=== PATIENT | female | born 1935 | race Caucasian/White ===

== ENCOUNTER 2017-07-20 10:55 | Emergency (ER) | payer OTHER ==
[~2017-07-20] VITALS: Ht 160 cm; Wt 79.4 kg
[~2017-07-20 10:55] MED LIST: AMLO5TAB2 PO; ASPI-587 PO; FLUT1DIS3 IH; LEVO75TA6 PO; LOSA1TAB23 PO; LOVA40TA2 PO; OSLT75CRX PO; RT-ALBUINH IH
--- OUTSIDE RECORDS SUMMARY | 2017-07-20 11:02 | XMS REPORT | Continuity of Care Document ---
Author Author [facility] Organization [facility] Address Unknown Phone Unavailable Allergies Active Description Code Type Severity Reaction Onset Reported/Identified Relationship to Patient Clinical Status Yes PCN PCN Mild N/A 04/05/2014 Yes Penicillins [id number] Drug Allergy Unknown N/A 04/05/2014 Yes No Known Drug Allergies [id number] Drug Allergy Unknown N/A 05/20/2014 Medications There is no data. Problems Date Dx Coded Attending Type Code Diagnosis Diagnosed By 04/04/2014 LEIGHTON ARAUJO MD Ot V72.84 04/05/2014 VAN WARD, LEIGHTON Ot 211.3 04/05/2014 VAN WARD, LEIGHTON Ot 244.9 04/05/2014 VAN WARD, LEIGHTON Ot 272.0 04/05/2014 VAN WARD, LEIGHTON Ot 401.9 04/05/2014 VAN WARD, LEIGHTON Ot 455.0 04/05/2014 VAN WARD, LEIGHTON Ot 455.3 04/05/2014 VAN WARD, LEIGHTON Ot 562.10 04/05/2014 VAN WARD, LEIGHTON Ot V58.66 04/05/2014 VAN WARD, LEIGHTON Ot V58.69 04/05/2014 LEIGHTON ARAUJO MD Ot V67.9 05/20/2014 Ot V01.89 05/20/2014 Ot V71.89 07/05/2014 LEIGHTON ARAUJO MD Ot V72.84 07/05/2014 LEIGHTON ARAUJO MD Ot V72.84 07/05/2014 LEIGHTON ARAUJO MD Ot V72.84 07/05/2014 LEIGHTON ARAUJO MD Ot V72.84 Procedures There is no data. Results There is no data. Encounters ACCT No. Visit Date/Time Discharge Status Pt. Type Provider Facility Loc./Unit Complaint [id number] 04/05/2014 08:17:00 04/05/2014 12:05:00 DIS Outpatient LEIGHTON ARAUJO MD [facility] [id number] 03/29/2014 05:45:00 03/29/2014 23:59:59 CLS Outpatient LEIGHTON ARAUJO MD [facility] PREOP [id number] 02/07/2013 10:25:00 02/07/2013 23:59:59 CLS Outpatient [id number] 05/20/2014 14:47:00 Document Registration [id number] 04/07/2016 09:10:54 04/07/2016 23:59:59 CLS Outpatient
[2017-07-20 11:50] LABS: BASOPHILS % (AUTO) 0 % (0-10); EOSINOPHILS # (AUTO) 0.1 10^3/uL (0.0-0.3); EOSINOPHILS % (AUTO) 1 % (0-10); HEMATOCRIT 42 % (35-52); HEMOGLOBIN 14.2 G/DL (11.5-16.0); LYMPHOCYTES # (AUTO) 1.8 X 10^3 (1.0-4.0); LYMPHOCYTES % (AUTO) 33 % (12-44); MEAN CORPUSCULAR HEMOGLOBIN 28 PG (25-34); MEAN CORPUSCULAR HGB CONC 34 G/DL (32-36); MEAN CORPUSCULAR VOLUME 84 FL (80-99); MEAN PLATELET VOLUME 10.5 FL (7.4-10.4); MONOCYTES # (AUTO) 0.3 X 10^3 (0.0-1.0); MONOCYTES % (AUTO) 6 % (0-12); NEUTROPHILS # (AUTO) 3.3 X 10^3 (1.8-7.8); NEUTROPHILS % (AUTO) 60 % (42-75); PLATELET COUNT 291 10^3/uL (130-400); RED BLOOD COUNT 5.03 10^6/uL (4.35-5.85); RED CELL DISTRIBUTION WIDTH 14.1 % (10.0-14.5); WHITE BLOOD COUNT 5.5 10^3/uL (4.3-11.0)
[2017-07-20 12:01] LABS: BILIRUBIN,TOTAL 0.5 MG/DL (0.1-1.0); CALCIUM 9.4 MG/DL (8.5-10.1); CREATININE SERUM 1.05 MG/DL (0.60-1.30); POTASSIUM 3.7 MMOL/L (3.6-5.0); TOTAL PROTEIN 6.9 GM/DL (6.4-8.2)
--- NOTE | 2017-07-20 12:06 | ED General ---
General Chief Complaint: Dizziness/Syncope Stated Complaint: DIZZY OFF BALANCE Nursing Triage Note: pt presents to ed with complaints of dizziness since Thursday. Reports she has not seen her provider for this. Pt states she feels like her equilebrium is off. Pt denies SOA, CP, BALL, weakness, vision changes, or difficulty with speech. Nursing Sepsis Screen: No Definite Risk Source of Information: Patient Exam Limitations: No Limitations History of Present Illness Date Seen by Provider: July 20, 2017 Time Seen by Provider: 11:41 Initial Comments This 82-year-old woman is a patient of Dr. Clayton who presents to the emergency room complaining of sensation of dizziness and disequilibrium since July 17. She states her dizziness was a fairly intense vertigo on July 17 which has now subsided to a more mild sensation of disequilibrium. It is worse upon standing and with head movements. She no longer has a spinning sensation associated with it. She feels like she leans to the left when walking and she has to be careful to avoid falling. She has not required assistive devices such as a walker or cane. She is notably hypertensive on assessment. She reports her blood pressure at home was 152/63. She does take antihypertensive medications and her last dose was yesterday evening. She denies any chest pain, shortness of breath, fever, cough, or urinary symptoms. She does have some aching in the hamstrings bilaterally. She reports remodeling a house and spending a great deal of time pulling aaron out of floors. Allergies and Home Medications Allergies Coded Allergies: No Known Drug Allergies (Unverified , 05/20/14) Home Medications Amlodipine Besylate 5 Mg Tablet, 5 MG PO DAILY, (Reported) Aspirin 81 Mg Tablet.dr, 81 MG PO DAILY, (Reported) Levothyroxine Sodium 75 Mcg Tablet, 50 MCG PO DAILY, (Reported) Losartan/Hydrochlorothiazide 1 Each Tablet, 1 EACH PO DAILY, (Reported) Lovastatin 40 Mg Tablet, 1 EACH PO DAILY WITH SUPPER, (Reported) Patient Home Medication List Home Medication List Reviewed: Yes Review of Systems Constitutional: dizziness EENTM: no symptoms reported Respiratory: no symptoms reported Cardiovascular: no symptoms reported Gastrointestinal: no symptoms reported Genitourinary: no symptoms reported : No Musculoskeletal: see HPI Skin: no symptoms reported Psychiatric/Neurological: See HPI Hematologic/Lymphatic: No Symptoms Reported Immunological/Allergic: no symptoms reported Past Impxqoc-Nasfor-Ahbxnk Hx Patient Social History Alcohol Use: Denies Use Recreational Drug Use: No Smoking Status: Never a Smoker Recent Foreign Travel: No Contact w/Someone Who Travel: No Recent Infectious Disease Expo: No Physical Abuse: No Sexual Abuse: No Mistreated: No Fear: No Immunizations Up To Date Date of Pneumonia Vaccine: Feb 03, 2014 Date of Influenza Vaccine: Feb 03, 2014 Seasonal Allergies Seasonal Allergies: No Past Medical History Surgeries: Yes Hysterectomy, Tonsillectomy Respiratory: Yes (C-PAP) Asthma, Sleep Apnea Cardiac: Yes High Cholesterol, Hypertension Neurological: No : No Reproductive Disorders: No Gastrointestinal: No Musculoskeletal: No Endocrine: Yes Hypothyroidsim HEENT: No Cancer: No Psychosocial: No Nursing Suicide Risk Score: 0 Integumentary: No Blood Disorders: No Physical Exam Vital Signs Vital Signs - First Documented 07/20/17 11:27 Temp 97.8 Pulse 50 Resp 18 B/P (MAP) 187/79 (115) Pulse Ox 94 Capillary Refill : Less Than 3 Seconds General Appearance: No Apparent Distress, WD/WN HEENT: PERRL/EOMI, TMs Normal, Normal ENT Inspection, Pharynx Normal Respiratory: Lungs Clear, Normal Breath Sounds, No Accessory Muscle Use, No Respiratory Distress Cardiovascular: Regular Rate, Rhythm, No Edema, No Murmur Gastrointestinal: Normal Bowel Sounds, Non Tender, Soft Extremity: Normal Inspection, No Pedal Edema, Other (tenderness of the hamstrings bilaterally) Neurologic/Psychiatric: Alert, Oriented x3, No Motor/Sensory Deficits, Normal 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 Normal gait) Skin: Normal Color, Warm/Dry Progress/Results/Core Measures Suspected Sepsis Recent Fever Within 48 Hours: No Infection Criteria Present: None New/Unexplained Altered Menta: No Sepsis Screen: No Definite Risk SIRS Temperature:97.8 Pulse: 50 Respiratory Rate: 18 Laboratory Tests 07/20/17 11:22: White Blood Count 5.5 Blood Pressure 187 /79 Mean: 115 Laboratory Tests 07/20/17 11:22: Creatinine 1.05, Platelet Count 291, Total Bilirubin 0.5 Results/Orders Lab Results Laboratory Tests Test 07/20/17 11:22 07/20/17 12:26 Range/Units White Blood Count 5.5 4.3-11.0 10^3/uL Red Blood Count 5.03 4.35-5.85 10^6/uL Hemoglobin 14.2 11.5-16.0 G/DL Hematocrit 42 35-52 % Mean Corpuscular Volume 84 80-99 FL Mean Corpuscular Hemoglobin 28 25-34 PG Mean Corpuscular Hemoglobin Concent 34 32-36 G/DL Red Cell Distribution Width 14.1 10.0-14.5 % Platelet Count 291 130-400 10^3/uL Mean Platelet Volume 10.5 H 7.4-10.4 FL Neutrophils (%) (Auto) 60 42-75 % Lymphocytes (%) (Auto) 33 12-44 % Monocytes (%) (Auto) 6 0-12 % Eosinophils (%) (Auto) 1 0-10 % Basophils (%) (Auto) 0 0-10 % Neutrophils # (Auto) 3.3 1.8-7.8 X 10^3 Lymphocytes # (Auto) 1.8 1.0-4.0 X 10^3 Monocytes # (Auto) 0.3 0.0-1.0 X 10^3 Eosinophils # (Auto) 0.1 0.0-0.3 10^3/uL Basophils # (Auto) 0.0 0.0-0.1 10^3/uL Sodium Level 141 135-145 MMOL/L Potassium Level 3.7 3.6-5.0 MMOL/L Chloride Level 106 98-107 MMOL/L Carbon Dioxide Level 28 21-32 MMOL/L Anion Gap 7 5-14 MMOL/L Blood Urea Nitrogen 20 H 7-18 MG/DL Creatinine 1.05 0.60-1.30 MG/DL Estimat Glomerular Filtration Rate 50 BUN/Creatinine Ratio 19 Glucose Level 114 H 70-105 MG/DL Calcium Level 9.4 8.5-10.1 MG/DL Total Bilirubin 0.5 0.1-1.0 MG/DL Aspartate Amino Transf (AST/SGOT) 17 5-34 U/L Alanine Aminotransferase (ALT/SGPT) 14 0-55 U/L Alkaline Phosphatase 55 40-136 U/L Troponin I < 0.30 <0.30 NG/ML Total Protein 6.9 6.4-8.2 GM/DL Albumin 4.0 3.2-4.5 GM/DL Thyroid Stimulating Hormone (TSH) 2.07 0.35-4.94 UIU/ML Free Thyroxine 1.10 0.70-1.48 NG/DL Urine Color YELLOW Urine Clarity CLEAR Urine pH 6 5-9 Urine Specific [place] 1.015 L 1.016-1.022 Urine Protein NEGATIVE NEGATIVE Urine Glucose (UA) NEGATIVE NEGATIVE Urine Ketones NEGATIVE NEGATIVE Urine Nitrite NEGATIVE NEGATIVE Urine Bilirubin NEGATIVE NEGATIVE Urine Urobilinogen NORMAL NORMAL MG/DL Urine Leukocyte Esterase NEGATIVE NEGATIVE Urine RBC (Auto) NEGATIVE NEGATIVE Urine RBC NONE /HPF Urine WBC NONE /HPF Urine Squamous Epithelial Cells RARE /HPF Urine Crystals NONE /LPF Urine Bacteria NEGATIVE /HPF Urine Casts NONE /LPF Urine Mucus SMALL H /LPF Urine Culture Indicated NO My Orders Orders - JOLEEN IVEY MD Cbc With Automated Diff (07/20/17 11:38) Comprehensive Metabolic Panel (07/20/17 11:38) Ua Culture If Indicated (07/20/17 11:38) Ekg Tracing (07/20/17 11:38) Monitor-Rhythm Ecg Trace Only (07/20/17 11:38) Chest 1 View, Ap/Pa Only (07/20/17 11:38) Thyroid Stimulating Hormone (07/20/17 11:56) Free T4 (Free Thyroxine) (07/20/17 11:56) Troponin I (07/20/17 11:57) Ct Head Wo (07/20/17 12:56) Us Carotid Ena Complete 10208 (07/20/17 12:56) Vital Signs/I&O 07/20/17 07/20/17 11:27 14:32 Temp 97.8 Pulse 50 55 Resp 18 18 B/P (MAP) 187/79 (115) 157/71 Pulse Ox 94 97 Capillary Refill : Less Than 3 Seconds Blood Pressure Mean: 115 Progress Note : Progress Note On initial assessment patient expressed a desire to receive a thorough workup to rule out any significant possible causes for her dizziness. After a workup was performed and no significant abnormalities were detected. Blood pressure showed no significant change upon standing. Blood pressure did trend toward a normal direction and patient was actually feeling improved by the time of discharge. She was discharged home to follow up with her primary care provider. Patient did have some mild bradycardia at times with heart rates dropping into the upper 40s. This could be a contributing factor. Her blood pressure is not ideally controlled at this time. That could also be acute renal factor. She was advised to discuss her medications with her primary care provider. Patient performed well with observed ambulation to ensure safety before discharge. ECG Initial ECG Impression Date: July 20, 2017 Initial ECG Impression Time: 12:06 Initial ECG Rate: 48 Initial ECG Rhythm: S.Joseph Comment Mild sinus bradycardia with no ST elevation or depression. No abnormal intervals or axis deviation. Diagnostic Imaging Diagonstic Imaging: CT Plain Films/CT/US/NM/MRI: head Comments CT the head reviewed by me and report reviewed. See report below: NAME: [facility] [employer] REC#: [id number] PT STATUS: DEP ER : 1935 PHYSICIAN: JOLEEN IVEY MD ADMIT DATE: 07/20/17/ER Signed Date of Exam: 07/20/17 CT HEAD WO PROCEDURE: CT head without contrast. TECHNIQUE: Multiple contiguous axial images were obtained through the brain without the use of intravenous contrast. INDICATION: Dizziness. COMPARISON: There are no prior studies available for comparison. FINDINGS: There is no mass, shift of the midline, or hemorrhage to suggest an acute intracranial abnormality. The ventricles are not abnormally dilated. There is an area slightly altered density adjacent to the lateral aspect of the right occipital horn (image 11/27). I suspect that this is due to volume averaging and not to a discrete abnormality. The bone windows show no evidence for a fracture or for a destructive lesion. The orbits and sinuses were not visualized in their entirety. Where visualized, there is no acute abnormality. IMPRESSION: 1. There is no evidence for an acute intracranial abnormality. 2. If clinical concern regarding an acute abnormality persists, then MRI would be recommended for further study. 3. These results were discussed with Dr. Ivey in the ER. Dictated by: Dictated on workstation # [id number] Dict: 07/20/17 1315 Trans: 07/20/171726 Interpreted by: ALEC VITALE MD Electronically signed by: ALEC VITALE MD 07/20/171726 Diagonstic Imaging: Xray Plain Films/CT/US/NM/MRI: chest Comments NAME: HEMA E[facility] [employer] REC#: [id number] PT STATUS: REG ER : 1935 PHYSICIAN: JOLEEN IVEY MD ADMIT DATE: 07/20/17/ER Signed Date of Exam: 07/20/17 CHEST 1 VIEW, AP/PA ONLY Indication: Dizziness. Comparison: 02/07/2013. Findings: Unchanged cardiomegaly. Normal pulmonary vasculature. Visible lungs are clear. Posterior lower lobes are poorly evaluated by portable radiography. Atherosclerotic aorta. No pleural effusion or pneumothorax. Impression: Stable cardiomegaly without acute cardiopulmonary process by portable radiography. Dictated by: Dictated on workstation # [id number] Dict: 07/20/17 1224 Trans: 07/20/17 1321 Interpreted by: ELIANE HANKINS MD Electronically signed by: ELIANE HANKINS MD 07/20/17 1321 Diagonstic Imaging: Ultrasound Plain Films/CT/US/NM/MRI: other (Bilateral carotid ultrasound) Comments NAME: [facility] REC#: [id number] PT STATUS: DEP ER : 1935 PHYSICIAN: JOLEEN IVEY MD ADMIT DATE: 07/20/17/ER Signed Date of Exam: 07/20/17 US CAROTID ENA COMPLETE [id number] PROCEDURE: US carotid duplex, bilateral. TECHNIQUE: Multiple real-time grayscale images were obtained over the carotid arteries in various projections, bilaterally. Additional duplex Doppler and color Doppler images were also obtained. DATE: July 20, 2017. INDICATION: 82-year-old female, dizziness. COMPARISON: None. FINDINGS: Peak systolic velocity in the left common carotid artery measures 77 cm/s. Peak systolic velocity in the left proximal internal carotid artery measures 39 cm/s, 34 cm/s in the mid left internal carotid artery, and 70 cm/s distally. Peak systolic velocity in the left external carotid artery measures 44 cm/s. There is patent antegrade flow in the left vertebral artery. Peak systolic velocity in the right common carotid artery measures 72 cm/s. Peak systolic velocity in the right proximal internal carotid artery measures 103 cm/s, 70 cm/s in the mid right internal carotid artery, and 80 cm/s distally. Peak systolic velocity in the right external carotid artery measures 51 cm/s. There is patent antegrade flow in the right vertebral artery. IMPRESSION: 1. Negative for hemodynamically significant right or left internal carotid artery stenosis. 2. Patent antegrade flow in the bilateral vertebral arteries. Parameters based on the consensus panel Paz-Scale and Doppler ultrasound criteria published January 2003, Radiology, Volume 229. DOPPLER (peak systolic velocity M/S Right Left CCA .71 .77 ICA Proximal 1.03 .39 ICA Mid .69 .33 ICA Distal .8 .69 RATIO 1.44 .91 ECA .5 .44 VERT .56 .44 Dictated by: Dictated on workstation # [id number] Dict: 07/20/17 1339 Trans: 07/20/17 1609 Interpreted by: LUI REED MD Electronically signed by: LUI REED MD 07/20/17 1609 Departure Impression Primary Impression: Dizziness Additional Impressions: Disequilibrium Hypertension Qualified Codes: I10 - Essential (primary) hypertension Disposition: 01 HOME, SELF-CARE Condition: Improved Departure-Patient Inst. Decision time for Depature: 14:15 Referrals: DOUG CLAYTON MD (PCP/Family) Primary Care Physician Patient Instructions: High Blood Pressure (DC), Labyrinthitis Add. Discharge Instructions: The exact cause of your dizziness is uncertain. It may be related to a viral illness, heart rate, or blood pressure. Follow-up with your primary care provider as soon as possible. Return to the emergency room if symptoms worsen. Until symptoms resolve, please stand up and walk very carefully. Use an assistive device such as a cane or walker if necessary. Stay well hydrated and avoid excessive salt intake. All discharge instructions reviewed with patient and/or family. Voiced understanding. Copy Copies To 1: DOUG CLAYTON MD, JOSHUA T MD July 20, 2017 12:06
--- NOTE | 2017-07-20 12:28 | Diagnostic Imaging Report ---
Indication: Dizziness. Comparison: 02/07/2013. Findings: Unchanged cardiomegaly. Normal pulmonary vasculature. Visible lungs are clear. Posterior lower lobes are poorly evaluated by portable radiography. Atherosclerotic aorta. No pleural effusion or pneumothorax. Impression: Stable cardiomegaly without acute cardiopulmonary process by portable radiography. Dictated by: Dictated on workstation # [id number]
[2017-07-20 12:34] LABS: BILIRUBIN,URINE NEGATIVE (NEGATIVE); CLARITY,URINE CLEAR; COLOR,URINE YELLOW; GLUCOSE, URINE (UA) NEGATIVE (NEGATIVE); KETONES,URINE NEGATIVE (NEGATIVE); LEUKOCYTE ESTERASE ,URINE NEGATIVE (NEGATIVE); NITRITE,URINE NEGATIVE (NEGATIVE); PH,URINE 6 (5-9); PROTEIN,URINE NEGATIVE (NEGATIVE); UROBILINOGEN,URINE NORMAL (NORMAL)
[2017-07-20 12:41] LABS: BACTERIA,URINE NEGATIVE /HPF; SQUAMOUS EPITHELIAL CELL,UR RARE /HPF
--- NOTE | 2017-07-20 13:28 | Diagnostic Imaging Report ---
PROCEDURE: CT head without contrast. TECHNIQUE: Multiple contiguous axial images were obtained through the brain without the use of intravenous contrast. INDICATION: Dizziness. COMPARISON: There are no prior studies available for comparison. FINDINGS: There is no mass, shift of the midline, or hemorrhage to suggest an acute intracranial abnormality. The ventricles are not abnormally dilated. There is an area slightly altered density adjacent to the lateral aspect of the right occipital horn (image 11/27). I suspect that this is due to volume averaging and not to a discrete abnormality. The bone windows show no evidence for a fracture or for a destructive lesion. The orbits and sinuses were not visualized in their entirety. Where visualized, there is no acute abnormality. IMPRESSION: 1. There is no evidence for an acute intracranial abnormality. 2. If clinical concern regarding an acute abnormality persists, then MRI would be recommended for further study. 3. These results were discussed with Dr. Ivey in the ER. Dictated by: Dictated on workstation # [id number]
--- NOTE | 2017-07-20 13:45 | Diagnostic Imaging Report ---
PROCEDURE: US carotid duplex, bilateral. TECHNIQUE: Multiple real-time grayscale images were obtained over the carotid arteries in various projections, bilaterally. Additional duplex Doppler and color Doppler images were also obtained. DATE: July 20, 2017. INDICATION: 82-year-old female, dizziness. COMPARISON: None. FINDINGS: Peak systolic velocity in the left common carotid artery measures 77 cm/s. Peak systolic velocity in the left proximal internal carotid artery measures 39 cm/s, 34 cm/s in the mid left internal carotid artery, and 70 cm/s distally. Peak systolic velocity in the left external carotid artery measures 44 cm/s. There is patent antegrade flow in the left vertebral artery. Peak systolic velocity in the right common carotid artery measures 72 cm/s. Peak systolic velocity in the right proximal internal carotid artery measures 103 cm/s, 70 cm/s in the mid right internal carotid artery, and 80 cm/s distally. Peak systolic velocity in the right external carotid artery measures 51 cm/s. There is patent antegrade flow in the right vertebral artery. IMPRESSION: 1. Negative for hemodynamically significant right or left internal carotid artery stenosis. 2. Patent antegrade flow in the bilateral vertebral arteries. Parameters based on the consensus panel Paz-Scale and Doppler ultrasound criteria published January 2003, Radiology, Volume 229. DOPPLER (peak systolic velocity M/S Right Left CCA .71 .77 ICA Proximal 1.03 .39 ICA Mid .69 .33 ICA Distal .8 .69 RATIO 1.44 .91 ECA .5 .44 VERT .56 .44 Dictated by: Dictated on workstation # [id number]
[2017-07-20 14:32] VITALS: BP 157/71
== END 2017-07-20 14:32 | disposition home or self-care (01) ==
LOC: EDUNIT# 10:55 → ER 10:59
DX: R42 Dizziness and giddiness (principal); E87.8 Other disorders of electrolyte and fluid balance, not elsewhere classified; I10 Essential (primary) hypertension; J45.909 Unspecified asthma, uncomplicated; G47.30 Sleep apnea, unspecified; E78.00 Pure hypercholesterolemia, unspecified; E03.9 Hypothyroidism, unspecified; Z79.82 Long term (current) use of aspirin; Z90.89 Acquired absence of other organs; Z90.710 Acquired absence of both cervix and uterus
CPT/HCPCS: 36415; 70450; 71045; 80053; 81000; 84439; 84443; 84484; 85025; 93005; 93041; 93880

== ENCOUNTER → 2020-09-14 | Outpatient (CLI) | payer MEDICARE, OTHER | LOC: CARD 10:30 | PROVIDERS: ATTEND Internal Medicine Cardiovascular Disease | DX: I11.9 Hypertensive heart disease without heart failure (principal); I25.10 Atherosclerotic heart disease of native coronary artery without angina pectoris | CPT/HCPCS: 93306 ==

== ENCOUNTER → 2020-09-24 | Outpatient (CLI) | payer MEDICARE, OTHER ==
[~2020-09-24] VITALS: Ht 160 cm; Wt 77.0 kg
[~2020-09-24] MED LIST changes: +CATHETER FLUSH 10 ML SYR IV PRN; +REGADENOSON 0.4 MG/5 ML SYR (LEXISCAN) IV ONE
[2020-09-24 09:03] VITALS: BP 157/92
--- NOTE | 2020-09-24 11:00 | Cardiology Stress Test Report ---
Stress Test Report Date of Procedure/Referring: Date of Procedure: Sep 24, 2020 PCP Aleyda Guerra MD Admitting Physician Farhad Clayton MD Indications: HTN Baseline Heart Rate: 68 Baseline Blood Pressure: Blood Pressure Systolic: 157 Blood Pressure Diastolic: 92 Baseline Vitals Vital Signs Date Time Temp Pulse Resp B/P (MAP) Pulse Ox O2 Delivery O2 Flow Rate FiO2 09/24/20 09:03 41 18 157/92 (113) 95 Room Air Baseline EKG: Baseline EKG: NSR Summary After explaining the procedure to the patient, she signed a consent and then brought to the stress nuclear laboratory. Patient received 0.4 mg Lexiscan for stress test, ECG, heart rate and blood pressure were monitored continuously. Resting and stress dose of radio tracer were injected, imaging was acquired and reviewed in short axis, horizontal long axis and vertical long axis views. TID: 1.16 SSS: 3 SDS: 3 EF: 68 1. Patient tolerated Lexiscan well 2. No significant ischemia or infarction on SPECT images 3. Normal left ventricular size, EF 68% ALEYDA GUERRA MD Sep 24, 2020 11:00
== END ==
LOC: CARD 08:30
PROVIDERS: ATTEND Internal Medicine Cardiovascular Disease
DX: I10 Essential (primary) hypertension (principal); I25.10 Atherosclerotic heart disease of native coronary artery without angina pectoris
CPT/HCPCS: 78452; 93017; A9502

== ENCOUNTER → 2020-10-18 | Outpatient (CLI) | payer MEDICARE, OTHER ==
[~2020-10-18] MED LIST changes: -CATHETER FLUSH 10 ML SYR IV PRN; -REGADENOSON 0.4 MG/5 ML SYR (LEXISCAN) IV ONE
== END ==
LOC: CARD 10:30
PROVIDERS: ATTEND Physician Assistant
DX: I49.9 Cardiac arrhythmia, unspecified (principal)
CPT/HCPCS: 93225; 93226

== ENCOUNTER 2020-10-31 14:00 | Day surgery (SDC) | payer MEDICARE, OTHER ==
[~2020-10-31] VITALS: Ht 157 cm; Wt 78.9 kg
[2020-10-31] VITALS (9 sets, daily range): BP systolic 128–177; BP diastolic 74–98
[2020-10-31] MEDS: NS IV 1000 ML 1,000 ML IV SCH ×2 (12:43→22:15)
[2020-10-31 12:49] LABS: HEMATOCRIT 44 % (35-52); HEMOGLOBIN 14.2 g/dL (11.5-16.0); MEAN CORPUSCULAR HEMOGLOBIN 28 pg (25-34); MEAN CORPUSCULAR HGB CONC 32 g/dL (32-36); MEAN CORPUSCULAR VOLUME 87 fL (80-99); MEAN PLATELET VOLUME 10.8 fL (9.0-12.2); PLATELET COUNT 265 10^3/uL (130-400); WHITE BLOOD COUNT 5.8 10^3/uL (4.3-11.0)
--- NOTE | 2020-10-31 12:53 | Diagnostic Imaging Report ---
INDICATION: SINUS NODE DYSFUNCTION. SHORTNESS OF AIR. EVALUATION PRIOR TO HEART CATHETERIZATION FOR PERMANENT PACEMAKER. TECHNIQUE: Single view chest 12:42 PM. CORRELATION STUDY: 07/20/2017 FINDINGS: Heart size is enlarged, stable. Calcification of the aortic arch. Vasculature overall within normal limits. Minimal atelectasis and/or scarring left lung base. Lung luna otherwise clear. IMPRESSION: 1. Stable severity cardiac enlargement without failure. Dictated by: Dictated on workstation # [id number]
[2020-10-31 13:06] LABS: INR 0.9 (0.8-1.4); PROTHROMBIN TIME PATIENT 12.9 SEC (12.2-14.7)
[2020-10-31 13:15] LABS: BILIRUBIN,TOTAL 0.6 MG/DL (0.1-1.0); CALCIUM 10.1 MG/DL (8.5-10.1); CREATININE SERUM 1.17 MG/DL (0.60-1.30); POTASSIUM 3.3 MMOL/L (3.6-5.0); TOTAL PROTEIN 7.3 GM/DL (6.4-8.2)
[~2020-10-31 14:00] MED LIST changes: +ASPI-1238 PO; +CALC-250 PO; +HEParin (CATH LAB) 1,000 ML IV ONE; +HYDR25TA4 PO; +LEVO50CA4 PO; +LIDOCAINE 1% INJ 20 ML 20 ML VIAL ONE; +LOSA100T57 PO; +MELA1TAB15 PO; +NAPR220T66 PO; +NS IV 1000 ML 2,000 ML ONE; +PRAV20TA3 PO; +TURM500C4 PO; +ZINC50TA58 PO; +ceFAZolin INJECTION 1,000 MG ONE
[2020-10-31] MEDS ORDERED: fentaNYL INJ 100 MCG/2 ML AMP ONE ×2 (14:14→15:22)
[2020-10-31] MEDS ORDERED: MIDAZOLAM 5 MG/5 ML (VERSED) VIAL ONE (14:14)
[2020-10-31] MEDS ORDERED: meTOprolol 5 MG/5 ML (LOPRESSOR) VIAL ONE (15:34)
--- NOTE | 2020-10-31 15:51 | Conscious Sedation/ASA ---
Conscious Sedation Pre-Proced Time 13:00 ASA Score 3 For ASA 3 and 4: Consider anesthesia and medical clearance. Also, for patients with a history of failed moderate sedation consider anesthesia. Airway Lungs Heart ASA score ASA 1: a normal healthy patient ASA 2: a patient with a mild systemic disease (mid diabetes, controlled hypertension, obesity x ASA 3: a patient with a severe systemic disease that limits activity (angina, COPD, prior Myocardial infarction) ASA 4: a patient with an incapacitating disease that is a constant threat to life (CHF, renal failure) ASA 5: a moribund patient not expected to survive 24 hrs. (ruptured aneurysm) ASA 6: a declared brain- patient whose organs are being harvested. For emergent operations, add the letter E after the classification Mallampati Classification Grade 3 Sedation Plan Analgesia, Amnesia, Plan communicated to team members, Discussed options with patient/fam, Discussed risks with patient/fam The patient is an appropriate candidate to undergo the planned procedure, sedation, and anesthesia. The patient immediately re-assessed prior to indication. ALEYDA LOJA MD Oct 31, 2020 15:51
--- NOTE | 2020-10-31 15:54 | Permanent Pacemaker Implant ---
Dual Chamber Pacemaker Implant PROCEDURE PHYSICIAN: Aleyda Guerra DUAL CHAMBER PACEMAKER IMPLANTATION: DATE OF PROCEDURE: 10/31/20 INDICATION: Symptomatic bradycardia PREOPERATIVE DIAGNOSIS: Sinus node dysfunction POSTOPERATIVE DIAGNOSIS: Sinus node dysfunction HISTORY: Dual-chamber permanent pacemaker was recommended. PROCEDURE PERFORMED: 1. Dual-chamber permanent pacemaker implantation. 2. Fluoroscopy. 3. Central venous access. ANESTHESIA: Local anesthesia, conscious sedation. COMPLICATIONS: None. ESTIMATED BLOOD LOSS:20 mL. SPECIMENS: None. ORAL ANTICOAGULATION: None. FLUOROSCOPY TIME: FLUOROSCOPY DOSE: CONTRAST DOSE: PROCEDURE DETAILS: The patient is a 85 female with sinus node dysfunction, severe bradycardia, symptomatic complaining of fatigue, loss of energy. She was scheduled for dual- chamber pacemaker implant. And after all of the patients questions were answered, the patient was brought to the EP Lab. The patient's left chest was prepped and draped in sterile fashion. A 2 inch horizontal incision was made 1 cm below the clavicle and dissection carried down to the pectoralis fascia. Using the modified Seldinger technique and under fluoroscopy guidance, the anterior aspect of the left axillary vein was accessed 2 times. The J wires were secured to the drapes with a mosquito clamp. A 7-[place] sheath was introduced over one of the J-wires. The RV lead was then inserted. The RV lead was directed across the tricuspid valve to the apical septal portion of the right ventricle. The position was checked in PASHTO and FERGUSON views. The screw was deployed and the lead connected to the etl programmer. Close sensing and pacing thresholds were obtained. Diaphragmatic pacing was ruled out. The lead was secured with 2-0 silk ties to the underlying muscle and fascia. Next, a 7-[place] sheath was introduced through the remaining J-wire. An atrial lead was then introduced and guided to the level of the right appendage. The screw was deployed and the lead was connected to the interrogator. Good sensing and pacing thresholds were obtained. Diaphragmatic pacing was ruled out. The leads were secured with 2-0 silk ties to the underlying muscle and fascia. The leads were connected to the device in a hermetic fashion. The device and leads were placed in the pocket. Aggressive irrigation with saline solution was done. The device was secured to the underlying muscle and fascia with a 2-0 silk tie. interrogation of the device revealed good integrity of all the leads and good connections. The wound was then closed using 2 layers. The first layer was interrupted 2-0 absorbable Vicryl suture. The last layer was a single subcuticular layer with 4- 0 Vicryl suture. Half inch Steri-Strips and a small dressing were then applied to the wound. The patient tolerated the procedure well and was returned to the recovery room in stable condition with stable vital signs. DEVICE INFORMATION: VERNELL XT MRI [id number] RA LEAD: [id number] RV LEAD: [id number] PER-OPERATIVE DEVICE INTERROGATION: Good sensing and capture activity IMMEDIATE POSTOPERATIVE DEVICE INTERROGATION: Right atrium, threshold 0.4 ms at 0.75 V, impedance 494, P wave 2.5 mV Right ventricle, threshold 0.4 ms at 0.75 mV, impedance 1026, R wave 4.1 mV. PLAN: The patient transferred to the ICU. We will continue with two more doses of IV antibiotics. We will check a chest x-ray and interrogate the device in the morning. The patient will continue on oral antibiotics for 5 days. CONCLUSION: Successful implantation of dual-chamber pacemaker with no complication FINAL DIAGNOSIS: Sinus node dysfunction Symptomatic bradycardia Hypertension Fatigue ALEYDA GUERRA MD Oct 31, 2020 15:54
[2020-10-31] MEDS ORDERED: NS IV 1000 ML 1,000 ML IV SCH (16:00)
[2020-10-31] MEDS ORDERED: PATIENT MAY USE OWN MEDS, ALL PO SCH (16:00)
--- NOTE | 2020-10-31 16:31 | Diagnostic Imaging Report ---
EXAMINATION: Chest 1 view. HISTORY: Postoperative pacemaker placement. COMPARISON: 10/31/2020 FINDINGS: Stable enlargement of the cardiac silhouette. Surgical changes from left-sided cardiac pacemaker placement. The lungs are clear without consolidation, pleural effusion, or pneumothorax. The osseous structures are intact. IMPRESSION: 1. No acute radiographic abnormality in the chest. Surgical changes from left-sided cardiac pacemaker placement. Dictated by: Dictated on workstation # [id number]
[2020-10-31] MEDS ORDERED: LEVOTHYROXINE 50 MCG (LEVOTHROID) TAB PO SCH (21:00)
[2020-10-31] MEDS ORDERED: SIMvastatin 10 MG (ZOCOR) TAB PO SCH (21:00)
[2020-10-31] MEDS ORDERED: ASPIRIN E.C. 81 MG (ECOTRIN) TAB PO SCH (21:00)
[2020-10-31] MEDS ORDERED: NON-FORMULARY MEDICATION 1 EA EA (Levothyroxine Sodium (Levothyroxine) 50 MCG) PO SCH (21:00)
[2020-10-31] MEDS ORDERED: NON-FORMULARY MEDICATION 1 EA EA (Pravastatin Sodium 20 MG) PO SCH (21:00)
[2020-10-31] MEDS ORDERED: LOSARTAN 100 MG (COZAAR) TABLET PO SCH (21:00)
[2020-10-31] MEDS: ceFAZolin INJECTION 1,000 MG in WATER (STERILE) FOR INJECTION 10 ML IV SCH (22:33)
[2020-10-31] MEDS ORDERED: ACETAMINOPHEN 325 MG TABLET ONE (23:11)
[2020-10-31] MEDS ORDERED: oxyCODONE/APAP 5/325MG (PERCOCET 5) TABLET PO PRN (23:15)
[2020-10-31] MEDS ORDERED: ACETAMINOPHEN 325 MG TABLET PO PRN (23:15)
[2020-11-01] VITALS: BP 134/74
[2020-11-01 03:58] LABS: HEMATOCRIT 38 % (35-52); HEMOGLOBIN 12.2 g/dL (11.5-16.0); MEAN CORPUSCULAR HEMOGLOBIN 28 pg (25-34); MEAN CORPUSCULAR HGB CONC 32 g/dL (32-36); MEAN CORPUSCULAR VOLUME 88 fL (80-99); MEAN PLATELET VOLUME 10.6 fL (9.0-12.2); PLATELET COUNT 209 10^3/uL (130-400); WHITE BLOOD COUNT 5.3 10^3/uL (4.3-11.0)
[2020-11-01 04:00] VITALS: BP 158/89
[2020-11-01 04:03] LABS: ALBUMIN 3.1 GM/DL (3.2-4.5); POTASSIUM 3.5 MMOL/L (3.6-5.0)
[2020-11-01 04:04] LABS: CALCIUM 8.4 MG/DL (8.5-10.1)
[2020-11-01 04:05] LABS: TOTAL PROTEIN 5.7 GM/DL (6.4-8.2)
[2020-11-01 04:07] LABS: BILIRUBIN,TOTAL 0.3 MG/DL (0.1-1.0)
[2020-11-01 04:09] LABS: CREATININE SERUM 1.09 MG/DL (0.60-1.30)
[2020-11-01] MEDS: ceFAZolin INJECTION 1,000 MG in WATER (STERILE) FOR INJECTION 10 ML IV SCH (06:26)
[2020-11-01] MEDS ORDERED: CEFU500T63 PO (06:27)
[2020-11-01] MEDS ORDERED: MTP25TSR PO (06:27)
--- NOTE | 2020-11-01 06:28 | Discharge Inst-Post CATH ---
Discharge Inst-CATH/EP Problems Reviewed?: Yes Post Cardiac Cath/EP D/C Inst Follow Up/Plan Appointment with Dr Guerra in one week <b>CARDIAC CATH/EP PROCEDURE DISCHARGE INSTRUCTIONS</b> ACTIVITY * Go Home directly and rest. * Limit activity of the leg (or wrist if it was used) for 7 days including aerobics, swimming, jogging, bicycling, etc. * Restrict stair-climbing for 7 days if possible, if not, climb up with your non-cath leg, then bring together on the same step. * Avoid lifting, pushing, pulling or excessive movement of the affected extremity for 7 days. * Customary sexual activity may be resumed after 2 days-use caution not to use a position that strains or causes pain to the affected extremity. * No driving for 24 hours. * NO SMOKING. * Avoid straining for bowel movements for 7 days. * Gentle walking on level ground is allowed. * Returning to work will depend on the type of procedure and the results. Your doctor will discuss this with you. CALL YOUR DOCTOR FOR ANY OF THE FOLLOWING: *If bleeding from the puncture site occurs- Apply gentle pressure to site with clean cloth and call your doctor or EMS. * If a knot or lump forms under the skin, increases in size, or causes pain. * If bruising appears to be worsening or moving further down your leg instead of disappearing. * Temperature above 101 F. CARE OF YOUR GROIN INCISION; * Bruising or purple discoloration of the skin near the puncture site is common. * You may shower only, no bathtub bathing for 5 days. Be careful to avoid slipping as your leg may feel stiff. * If a closure device was used on your femoral artery, please see the attached guide regarding care of the device and your leg. * Leave dressing on FOR 24 hours. CARE OF YOUR WRIST INCISION; * Bruising or purple discoloration of the skin near the puncture site is common. * You may shower. * DO NOT submerge wrist. * Leave dressing on FOR 24 hours. ALEYDA GUERRA MD Nov 01, 2020 06:28
[2020-11-01] MEDS ORDERED: KCL 20 MEQ TAB (K-DUR) PO ONE (06:45)
[2020-11-01 08:08] VITALS: BP 182/88
--- NOTE | 2020-11-01 08:18 | Cardiology Progress Note ---
Subjective Date Seen by Provider: Nov 01, 2020 Time Seen by Provider: 08:17 Subjective/Events-last exam Patient was seen at bedside, laying down comfortably, denied any chest pain, site is swollen, no active bleeding Review of Systems General: No Chills, No Night Sweats, No Fatigue, No Malaise, No Appetite, No Other HEENT: No Head Aches, No Visual Changes, No Eye Pain, No Ear Pain, No Dysphasia, No Sinus Congestion, No Post Nasal Drip, No Sore Throat, No Other Pulmonary: No Dyspnea, No Cough, No Pleuritic Chest Pain, No Other Cardiovascular: No: Chest Pain, Palpitations, Orthopnea, Paroxysmal Noc. Dyspnea, Edema, Lt Headedness, Other Objective-Cardiology Exam Last Set of Vital Signs Vital Signs 11/01/20 08:08 Temp 36.3 Pulse 77 Resp 21 B/P (MAP) 182/88 (119) Pulse Ox 97 O2 Delivery Room Air I&O Intake and Output 11/01/20 00:00 Intake Total 310 ml Balance 310 ml Intake Oral 300 ml IV Total 10 ml # Voids 5 Daily Weight Change No General: Alert, Oriented X3, Cooperative HEENT: Atraumatic, PERRLA Neck: Supple, No JVD, No Thyromegaly Lungs: Clear to Auscultation, Normal Air Movement Heart: Regular Rate, Normal S1, Normal S2, Other (Systolic murmur at the left sternal border) Abdomen: Normal Bowel Sounds, Soft, No Tenderness, No Hepatosplenomegaly, No Masses Extremities: No Clubbing, No Cyanosis, No Edema, Normal Pulses, No Tenderness/Swelling Skin: No Rashes, No Breakdown, No Significant Lesion Neuro: Normal Gait, Normal Speech, Strength at 5/5 X4 Ext, Normal Tone, Sensation Intact Psych/Mental Status: Mental Status NL, Mood NL Results Lab Laboratory Tests 10/31/20 12:36 11/01/20 03:35 A/P-Cardiology Admission Diagnosis Symptomatic bradycardia Sinus node dysfunction Hypertension Fatigue Assessment/Plan Symptomatic bradycardia, sinus node dysfunction, status post dual-chamber pacemaker implantation with no complication, will interrogate today prior to discharge. Site is healing well. Started on Ceftin. Hypertension, poor control, adding Toprol-XL 25 mg daily and monitor tolerance and response Generalized fatigue and loss of energy probably secondary to bradycardia, monitor symptoms after pacemaker implant ALEYDA LOJA MD Nov 01, 2020 08:18
[2020-11-01] MEDS ORDERED: diphenhydrAMINE 25 MG TAB (BENADRYL) PO ONE (09:00)
[2020-11-01] MEDS ORDERED: DIPH25CA79 PO (09:45)
[2020-11-01 10:45] VITALS: BP 182/88
== END 2020-11-01 10:45 | disposition home or self-care (01) ==
LOC: CATH 14:00 → CSD 16:14 → CATH 11-01 10:45
PROVIDERS: ATTEND Internal Medicine Cardiovascular Disease
DX: I49.5 Sick sinus syndrome (principal); I10 Essential (primary) hypertension; R53.83 Other fatigue; Z79.899 Other long term (current) drug therapy
CPT/HCPCS: 33208; 71045; 80053 ×2; 80061; 85027 ×2; 85610; 85730; 87081; C1785; C1898 ×2; 36415

== ENCOUNTER → 2021-05-17 | Outpatient (CLI) | payer MEDICARE, OTHER ==
[~2021-05-17] MED LIST changes: +CEFU500T63 PO; +DIPH25CA79 PO; -HEParin (CATH LAB) 1,000 ML IV ONE; -LIDOCAINE 1% INJ 20 ML 20 ML VIAL ONE; +MTP25TSR PO; -NS IV 1000 ML 2,000 ML ONE; -ceFAZolin INJECTION 1,000 MG ONE
== END ==
LOC: CARD 10:30
PROVIDERS: ATTEND Internal Medicine Cardiovascular Disease
DX: I11.9 Hypertensive heart disease without heart failure (principal); I25.10 Atherosclerotic heart disease of native coronary artery without angina pectoris
CPT/HCPCS: 93306

== ENCOUNTER → 2021-07-31 | Outpatient (CLI) | payer MEDICARE, OTHER ==
--- NOTE | 2021-07-31 10:42 | Diagnostic Imaging Report ---
INDICATION: LEFT LEG PAIN TECHNIQUE: Multiple real-time grayscale images were obtained over the left lower extremity in various projections, bilaterally. Additional duplex Doppler and color Doppler images were also obtained. CORRELATION STUDY: None FINDINGS: Color and grayscale sonographic images demonstrate no intraluminal defect within the visualized portion of the common femoral, superficial femoral and/or popliteal veins to suggest thrombus formation. These vessels demonstrate normal response to compression and augmentation. No soft tissue fluid collection. IMPRESSION: 1. Negative for deep venous thrombosis of the left leg. Dictated by: Dictated on workstation # [id number]
--- NOTE | 2021-07-31 10:55 | Diagnostic Imaging Report ---
INDICATION: Heel pain along with bruising since starting blood thinners. No known injury. CORRELATION STUDY: None FINDINGS: Calcaneus is intact. No acute bony abnormality. Subtalar joint unremarkable. Visualized tibiotalar articulation appears unremarkable. There is mild enthesopathy at the Achilles tendon insertion site. Very small early plantar calcaneus spur like formation. Minimal calcification along the plantar fascia. Suggestion slight edema posteriorly with slight loss of definition of the Achilles tendon. IMPRESSION: 1. Negative for acute bony abnormality of the calcaneus. Mild spurlike formation. 3. Suggestion of mild edema with slight loss of the Achilles tendon stripe. Dictated by: Dictated on workstation # [id number]
== END ==
LOC: RAD 09:17
PROVIDERS: ATTEND Nurse Practitioner Family
DX: S90.32XA Contusion of left foot, initial encounter (principal); I48.91 Unspecified atrial fibrillation; W19.XXXA Unspecified fall, initial encounter
CPT/HCPCS: 73650

== ENCOUNTER → 2022-01-01 | Outpatient (CLI) | payer MEDICARE, OTHER | LOC: CARD 13:00 | PROVIDERS: ATTEND Internal Medicine Cardiovascular Disease | DX: I11.9 Hypertensive heart disease without heart failure (principal); I08.0 Rheumatic disorders of both mitral and aortic valves; I25.10 Atherosclerotic heart disease of native coronary artery without angina pectoris | CPT/HCPCS: 93306 ==

== ENCOUNTER → 2022-01-22 | Outpatient (CLI) | payer MEDICARE, OTHER ==
[~2022-01-22] MED LIST changes: +REGADENOSON 0.4 MG/5 ML SYR (LEXISCAN) IV ONE
[2022-01-22] MEDS: CATHETER FLUSH 10 ML SYR IVP PRN ×2 (07:18→08:52)
[2022-01-22 08:50] VITALS: BP 190/112
--- NOTE | 2022-01-22 14:55 | Cardiology Stress Test Report ---
Stress Test Report Date of Procedure/Referring: Date of Procedure: Jan 22, 2022 PCP Jose Tarango MD Admitting Physician Admitting Physician: Attending Physician: Cecy Guerra MD Indications: HTN Baseline Heart Rate: 85 Baseline Blood Pressure: Blood Pressure Systolic: 190 Blood Pressure Diastolic: 112 Baseline Vitals Vital Signs Date Time Temp Pulse Resp B/P (MAP) Pulse Ox O2 Delivery O2 Flow Rate FiO2 01/22/22 08:50 90 16 190/112 (138) 97 Room Air Baseline EKG: Baseline EKG: Paced rhythm Summary After explaining the procedure to the patient, she signed a consent and then brought to the stress nuclear laboratory. Patient received 0.4 mg Lexiscan for stress test, ECG, heart rate and blood pressure were monitored continuously. Resting and stress dose of radio tracer were injected, imaging was acquired and reviewed in short axis, horizontal long axis and vertical long axis views. TID: 0.9 SSS: 6 SDS: 1 EF: 59 1. Patient tolerated Lexiscan well 2. Baseline paced rhythm persisted during test 3. Fixed defect involving the inferoapical segment with no significant reversibility. No significant ischemia was noted 4. Normal left ventricular size, ejection fraction 59% Copy Copies To 1: JOSE TARANGO MD, BASHAR J MD Jan 22, 2022 14:55
== END ==
LOC: CARD 07:30
PROVIDERS: ATTEND Internal Medicine Cardiovascular Disease
DX: I10 Essential (primary) hypertension (principal); I25.10 Atherosclerotic heart disease of native coronary artery without angina pectoris
CPT/HCPCS: 78452; 93017; A9502

== ENCOUNTER 2022-06-19 06:31 | Emergency (ER) | payer MEDICARE, OTHER ==
[2022-06-19 06:31] VITALS: BP 194/90
[~2022-06-19 06:31] MED LIST changes: -REGADENOSON 0.4 MG/5 ML SYR (LEXISCAN) IV ONE
--- NOTE | 2022-06-19 06:43 | ED Neurological Problem ---
General Chief Complaint: Neuro-Stroke Like Symptoms Stated Complaint: WEAKNESS,INABILITY TO SPEAK Source: patient, family, EMS, old records Exam Limitations: clinical condition History of Present Illness Date Seen by Provider: Jun 19, 2022 Time Seen by Provider: 06:35 Initial Comments 87-year-old female with past medical history of hypertension most notably coming in via EMS from home due to altered mental status. Last known normal was last night before bed. When she woke up, was generally weak, unable to get up by herself, normally does walk. She also was less talkative and confused. EMS reports she was hypertensive with systolic around 180s, she had paced rhythm on EKG, glucose was 146, and that she was 89% on room air which improved with supplemental oxygen. She does not wear oxygen at baseline. Patient was denying any pain. Otherwise denying any other acute complaints. Allergies and Home Medications Allergies Coded Allergies: No Known Drug Allergies (Unverified , 05/20/14) Patient Home Medication List Home Medication List Reviewed: Yes Aspirin (Aspirin EC) 81 Mg Tablet.dr, 81 MG PO HS, (Reported) Entered as Reported by: JYOTHI TRIVEDI on 10/31/20 1303 Cefuroxime Axetil (Cefuroxime) 500 Mg Tablet, 500 MG PO BID Prescribed by: ALEYDA LOJA on 11/01/20 0627 Cholecalciferol (Vitamin D3) (Vitamin D3) 125 Mcg Tablet, 125 MCG PO HS, (Reported) Entered as Reported by: JYOTHI TRIVEDI on 10/31/20 1303 Diphenhydramine HCl (Benadryl) 25 Mg Capsule, 25 MG PO BID PRN Prescribed by: ALEYDA LOJA on 11/01/20 0945 Hydrochlorothiazide (Hydrochlorothiazide) 25 Mg Tablet, 25 MG PO HS, (Reported) Entered as Reported by: JYOTHI TRIVEDI on 10/31/20 1303 Levothyroxine Sodium (Levothyroxine) 50 Mcg Capsule, 50 MCG PO HS, (Reported) Entered as Reported by: JYOTHI TRIVEDI on 10/31/20 1303 Losartan Potassium (Losartan Potassium) 100 Mg Tablet, 100 MG PO HS, (Reported) Entered as Reported by: JYOTHI TRIVEDI on 10/31/20 1303 Melatonin/Pyridoxine (Melatonin 5 mg Tablet) 1 Each Tablet, 1 EACH PO HS, (Reported) Entered as Reported by: JYOTHI TRIVEDI on 10/31/20 1303 Metoprolol Succinate (Metoprolol Succinate) 25 Mg Tab.er.24h, 25 MG PO DAILY Prescribed by: ALEYDA LOJA on 11/01/20 0627 Naproxen Sodium (Aleve) 220 Mg Tablet, 220 MG PO BID PRN for PAIN-MILD (1-4), (Reported) Entered as Reported by: JYOTHI TRIVEDI on 10/31/20 1303 Pravastatin Sodium (Pravastatin Sodium) 20 Mg Tablet, 20 MG PO HS, (Reported) Entered as Reported by: JYOTHI TRIVEDI on 10/31/20 1303 Turmeric/Turmeric Root Extract (Turmeric 500 mg Capsule) 1 Each Capsule, 2 EACH PO HS, (Reported) Entered as Reported by: JYOTHI TRIVEDI on 10/31/20 130 Zinc (Zinc) 50 Mg Tablet, 50 MG PO HS, (Reported) Entered as Reported by: JYOTHI TRIVEDI on 10/31/20 1303 Review of Systems Review of Systems Constitutional: No fever Eyes: No Symptoms Reported Ears, Nose, Mouth, Throat: no symptoms reported Respiratory: no symptoms reported Cardiovascular: no symptoms reported Gastrointestinal: no symptoms reported Genitourinary: no symptoms reported Musculoskeletal: no symptoms reported Skin: no symptoms reported Psychiatric/Neurological: See HPI Past Hsedcoq-Dmtipa-Wxnixi Hx Seasonal Allergies Seasonal Allergies: No Past Medical History Surgeries: Yes Hysterectomy, Tonsillectomy Respiratory: Yes (C-PAP) Asthma, Sleep Apnea Currently Using CPAP: Yes Cardiac: Yes High Cholesterol, Hypertension Neurological: No Reproductive Disorders: No Gastrointestinal: No Musculoskeletal: No Endocrine: Yes Hypothyroidsim HEENT: No Cancer: No Psychosocial: No Integumentary: No Blood Disorders: No Physical Exam Vital Signs Vital Signs - First Documented 06/19/22 06:31 Temp 39.6 Pulse 85 Resp 20 B/P (MAP) 194/90 (124) Pulse Ox 96 Capillary Refill : Height, Weight, BMI Height: 5'3.00" Weight: 175lbs. oz. [id number]; 2.92 BMI Method:Stated General Appearance: WD/WN, no apparent distress HEENT: PERRL/EOMI, normal ENT inspection, pharynx normal Neck: non-tender, full range of motion, supple, normal inspection Respiratory: chest non-tender, lungs clear, normal breath sounds, no respiratory distress, no accessory muscle use Cardiovascular: regular rate, rhythm, no edema, no murmur Gastrointestinal: normal bowel sounds, non tender, soft; No distended, No guarding, No rebound Back: normal inspection, no CVA tenderness Extremities: normal range of motion, non-tender, normal inspection, no pedal edema, no calf tenderness, normal capillary refill Neurologic/Psychiatric: 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 II-XII nml as tested, alert, normal mood/affect, oriented x 3, other (Initially with some lower extremity drift, later on was stronger) Crainal Nerves: normal hearing, normal speech, PERRL Coordination/Gait: normal finger to nose Motor/Sensory: no sensory deficit, no pronator drift Skin: normal color, warm/dry Focused Exam Lactate Level 06/19/22 06:30: Lactic Acid Level 1.02 Lactic Acid Level Laboratory Tests Test 06/19/22 06:30 Lactic Acid Level 1.02 MMOL/L (0.50-2.00) Progress/Results/Core Measures Results/Orders Lab Results Laboratory Tests Test 06/19/22 06:30 06/19/22 07:06 06/19/22 07:11 Range/Units White Blood Count 9.8 4.3-11.0 10^3/uL Red Blood Count 4.56 3.80-5.11 10^6/uL Hemoglobin 13.3 11.5-16.0 g/dL Hematocrit 40 35-52 % Mean Corpuscular Volume 87 80-99 fL Mean Corpuscular Hemoglobin 29 25-34 pg Mean Corpuscular Hemoglobin Concent 34 32-36 g/dL Red Cell Distribution Width 14.1 10.0-14.5 % Platelet Count 203 130-400 10^3/uL Mean Platelet Volume 10.2 9.0-12.2 fL Immature Granulocyte % (Auto) 1 % Neutrophils (%) (Auto) 90 H 42-75 % Lymphocytes (%) (Auto) 7 L 12-44 % Monocytes (%) (Auto) 3 0-12 % Eosinophils (%) (Auto) 0 0-10 % Basophils (%) (Auto) 0 0-10 % Neutrophils # (Auto) 8.7 H 1.8-7.8 10^3/uL Lymphocytes # (Auto) 0.7 L 1.0-4.0 10^3/uL Monocytes # (Auto) 0.2 0.0-1.0 10^3/uL Eosinophils # (Auto) 0.0 0.0-0.3 10^3/uL Basophils # (Auto) 0.0 0.0-0.1 10^3/uL Immature Granulocyte # (Auto) 0.1 0.0-0.1 10^3/uL Neutrophils % (Manual) 78 % Lymphocytes % (Manual) 13 % Monocytes % (Manual) 5 % Eosinophils % (Manual) 0 % Basophils % (Manual) 0 % Band Neutrophils 4 % Blood Morphology Comment NORMAL Prothrombin Time 31.8 H 12.2-14.7 SEC INR Comment 3.0 H 0.8-1.4 Activated Partial Thromboplast Time 37 H 24-35 SEC D-Dimer 0.91 H 0.00-0.49 UG/ML Sodium Level 138 135-145 MMOL/L Potassium Level 3.9 3.6-5.0 MMOL/L Chloride Level 103 98-107 MMOL/L Carbon Dioxide Level 25 21-32 MMOL/L Anion Gap 10 5-14 MMOL/L Blood Urea Nitrogen 16 7-18 MG/DL Creatinine 1.16 0.60-1.30 MG/DL Estimat Glomerular Filtration Rate 46 BUN/Creatinine Ratio 14 Glucose Level 150 H 70-105 MG/DL Lactic Acid Level 1.02 0.50-2.00 MMOL/L Calcium Level 9.1 8.5-10.1 MG/DL Corrected Calcium 9.3 8.5-10.1 MG/DL Magnesium Level 1.8 1.6-2.4 MG/DL Total Bilirubin 0.5 0.1-1.0 MG/DL Aspartate Amino Transf (AST/SGOT) 21 5-34 U/L Alanine Aminotransferase (ALT/SGPT) 16 0-55 U/L Alkaline Phosphatase 55 40-136 U/L Troponin I < 0.028 <0.028 NG/ML B-Type Natriuretic Peptide 104.1 H <100.0 PG/ML Total Protein 6.9 6.4-8.2 GM/DL Albumin 3.7 3.2-4.5 GM/DL Lipase 27 8-78 U/L Influenza Type A (RT-PCR) Not Detected Not Detecte Influenza Type B (RT-PCR) Not Detected Not Detecte SARS-CoV-2 RNA (RT-PCR) Not Detected Not Detecte Urine Color YELLOW Urine Clarity CLEAR Urine pH 6.0 5-9 Urine Specific [place] 1.025 H 1.016-1.022 Urine Protein NEGATIVE NEGATIVE Urine Glucose (UA) NEGATIVE NEGATIVE Urine Ketones NEGATIVE NEGATIVE Urine Nitrite NEGATIVE NEGATIVE Urine Bilirubin NEGATIVE NEGATIVE Urine Urobilinogen 0.2 < = 1.0 MG/DL Urine Leukocyte Esterase NEGATIVE NEGATIVE Urine RBC (Auto) TRACE-I H NEGATIVE Urine RBC 0-2 /HPF Urine WBC RARE /HPF Urine Squamous Epithelial Cells RARE /HPF Urine Crystals NONE /LPF Urine Bacteria NEGATIVE /HPF Urine Casts NONE /LPF Urine Mucus NEGATIVE /LPF Urine Culture Indicated NO My Orders Orders - SILVINA FLORES MD Cbc With Automated Diff (06/19/22 06:38) Comprehensive Metabolic Panel (06/19/22 06:38) Blood Culture (06/19/22 06:38) Sputum Culture (06/19/22 06:38) Urinalysis (06/19/22 06:38) Urine Culture (06/19/22 06:38) Protime With Inr (06/19/22 06:38) Partial Thromboplastin Time (06/19/22 06:38) Chest 1 View, Ap/Pa Only (06/19/22 06:38) Ed Iv/Invasive Line Start (06/19/22 06:38) Ed Iv/Invasive Line Start (06/19/22 06:38) Ekg Tracing (06/19/22 06:38) Troponin I [place] (06/19/22 06:38) Vital Signs Adult Sepsis Patie Q15M (06/19/22 06:38) Remove Rings In Anticipation O (06/19/22 06:38) Vital Signs Stroke Patient Q15M (06/19/22 06:38) Dysphagia Screening Tool Q10MX1 (06/19/22 06:38) O2 (06/19/22 06:38) Lactic Acid Analyzer (06/19/22 06:38) Influenza A And B By Pcr (06/19/22 06:38) Fibrin Degradation Products (06/19/22 06:38) Ct Head Wo-R/O Stroke (06/19/22 06:38) Monitor-Rhythm Ecg Trace Only (06/19/22 06:38) Covid 19 Inhouse Test (06/19/22 06:38) Acetaminophen Tablet (Tylenol Tablet) (06/19/22 06:45) Ns Iv 1000 Ml (Sodium Chloride 0.9%) (06/19/22 06:45) Cefepime Injection (Maxipime Injection) (06/19/22 06:45) Bnp [place] (06/19/22 06:43) Lipase (06/19/22 06:43) Magnesium (06/19/22 06:43) Catheter(Urinary) Insert & Ass 03,15 (06/19/22 07:02) Manual Differential (06/19/22 06:30) Chest 1 View, Ap/Pa Only (06/19/22 08:42) Ct Chest W (06/19/22 08:47) Ct Angio Head/Neck (06/19/22 08:47) Iohexol Injection (Omnipaque 350 Mg/Ml 1 (06/19/22 09:15) Received Contrast (Hold Metformin- Contr (06/19/22 09:15) Ns (Ivpb) (Sodium Chloride 0.9% Ivpb Bag (06/19/22 09:15) Doxycycline Injection (Vibramycin Inject (06/19/22 10:00) Medications Given in ED Current Medications Medications Dose Ordered Sig/Priyank Route Start Time Stop Time Status Last Admin Dose Admin Cefepime HCl 1000 mg/Sodium Chloride 50 ml @ 100 mls/hr ONCE ONCE IV 06/19/22 06:45 06/19/22 07:14 DC 06/19/22 07:11 100 MLS/HR Iohexol 75 ml ONCE ONCE IV 06/19/22 09:15 06/19/22 09:27 DC 06/19/22 09:46 75 ML Sodium Chloride 100 ml ONCE ONCE IV 06/19/22 09:15 06/19/22 09:27 DC 06/19/22 09:47 80 ML Vital Signs/I&O 06/19/22 06/19/22 06/19/22 06:31 06:31 06:31 Temp 39.6 Pulse 85 Resp 20 B/P (MAP) 194/90 (124) Pulse Ox 96 O2 Delivery Nasal Cannula Nasal Cannula Nasal Cannula O2 Flow Rate 2.00 2.00 2.00 Progress Progress Note : Progress Note 87-year-old female with above history coming in confused, generally weak, on oxygen. Patient was on 4 to 5 L oxygen on arrival, we turned it down to 3 L with normal oxygen saturation. Initially NIH was 3 due to some drift in her lower extremities and a little bit of inattention. Repeat assessment shortly after was 0 and she was more clear. CT head with no acute findings. Chest x- ray with no acute findings. She was given cefepime initially with IV fluids because she was febrile on arrival. Lactate normal, white blood cell count normal, urinalysis without evidence of infection. CTA head and neck with no acute findings. CT chest also with no acute findings. Added on doxycycline and with thoughts of that there is always potential for tickborne illness. Tickborne panel sent. At this point I recommended admission. I contacted Dr. Tarango who was willing to admit the patient to the [facility] unit. At this point, family has stated that their PCP has switched, they would prefer to go to [facility]. I contacted [facility], they have no beds and do not accept transfer. I discussed this with the family and once again stated we can admit her. At this point they signed the patient out AGAINST MEDICAL ADVICE stating they would drive her to [facility]. I did discuss the risk of decompensation on route which they were able to verbalize back to me Initial ECG Impression Date: Jun 19, 2022 Initial ECG Impression Time: 06:59 Initial ECG Rate: 84 Initial ECG Rhythm: Normal Sinus Comment Wide QRS with AV paced rhythm, no STEMI Diagnostic Imaging Diagonstic Imaging: Xray (chest), CT (head) Comments [facility], [place] NAME: HEMA EAST MED REC#: [id number] PT STATUS: REG ER : 1935 PHYSICIAN: SILVINA FLORES MD ADMIT DATE: 06/19/22/ER Signed Date of Exam:06/19/22 CHEST 1 VIEW, AP/PA ONLY Indication: Altered mental status Portable chest 6:55 AM Heart size and pulmonary vascularity are normal. Lungs are clear. There are no effusions or pneumothoraces. There is a dual-chamber pacemaker. IMPRESSION: No acute abnormalities in the chest Dictated by: Dictated on workstation # [id number] Dict: 06/19/22 0704 Trans: 06/19/22704 [facility] [id number] Interpreted by: FARHAT GILLESPIE MD Electronically signed by: FARHAT GILLESPIE MD 06/19/22704 [facility] [place] NAME: HEMA EAST [facility] REC#: [id number] PT STATUS: REG ER : 1935 PHYSICIAN: SILVINA FLORES MD ADMIT DATE: 06/19/22/ER Signed Date of Exam:06/19/22 CT HEAD WO-R/O STROKE PROCEDURE: CT head wo r/o stroke. TECHNIQUE: Multiple contiguous axial images were obtained through the brain without the use of intravenous contrast. Auto Exposure Controls were utilized during the CT exam to meet ALARA standards for radiation dose reduction. INDICATION: Altered mental status The ventricles are normal in size, shape and position. There are no masses or hemorrhages. There are no extra-axial fluid collections. There is decreased density in the periventricular white matter consistent with chronic small vessel ischemic change. IMPRESSION: Chronic ischemic leukoencephalopathy. No CT evidence of an acute infarct. No significant change compared to prior exam dated 07/20/2017. Dictated by: Dictated on workstation # [id number] Dict: 06/19/22700 Trans: 06/19/22701 [facility] [id number] Interpreted by: FARHAT GILLESPIE MD Electronically signed by: FARHAT GILLESPIE MD 06/19/22701 NAME: ZOFIA EASTA [facility] REC#: [id number] PT STATUS: REG ER : 1935 PHYSICIAN: SILVINA FLORES MD ADMIT DATE: 06/19/22/ER Signed Date of Exam:06/19/22 CT ANGIO HEAD/NECK PROCEDURE: CT angiography of the head and CT angiography of the neck with and without contrast. TECHNIQUE: Contiguous noncontrast images were obtained from the skull base through the vertex. After intravenous contrast administration, helical CT angiography of the neck was performed. Source data was reformatted into 3D MIP projections. Delayed post contrast acquisition was also obtained. Auto Exposure Controls were utilized during the CT exam to meet ALARA standards for radiation dose reduction. INDICATION: Shortness of air, fever. COMPARISON: None FINDINGS: Atherosclerosis within the proximal cervical ICA with 25% stenosis per NASCET criteria. Patent right common, right internal, right external carotid artery. Atherosclerosis within the left carotid bulb without significant stenosis. Patent left common, left internal, left external carotid artery. Patent bilateral subclavian arteries and bilateral vertebral arteries. Mild atherosclerosis within the proximal right vertebral artery with 25% stenosis of the origin. Atherosclerosis within the intracranial bilateral cavernous ICAs without significant stenosis. Patent bilateral MCA and ACAs. Patent bilateral and cranial vertebral arteries. The right vertebral artery is dominant. Patent basilar artery and bilateral paramedic rn. No aneurysm or arteriovenous malformation. No acute intracranial hemorrhage. The marks-white matter differentiation is preserved. The ventricles and cortical sulci are normal. . No mass or fluid collection. Chronic appearing infarct within the left thalamus. The paranasal sinuses demonstrate mucosal thickening within the left anterior ethmoid and left maxillary sinus. The soft tissues of the neck demonstrate normal soft tissues. No neck mass or lymphadenopathy. The and nasopharynx, oropharynx, and hypopharynx, and larynx are normal. The thyroid, submandibular gland, and parotid glands are normal. A few tiny scattered subcentimeter lymph nodes in the bilateral cervical chains. None are pathologically enlarged or avidly enhancing. The included lung apices demonstrates no significant finding. The osseous structures demonstrate advanced degenerative changes within the bilateral glenohumeral joints. Mild to moderate spinal canal and neural foraminal narrowing due to uncovertebral and facet arthritis and degenerative multilevel disc osteophyte complex. IMPRESSION: No large vessel occlusion or significant stenosis in the head and neck. No neck mass or lymphadenopathy. No fluid collections identified. No acute intracranial hemorrhage. No large vascular territory jeong-white loss. No intracranial mass, midline shift, or hydrocephalus. Mild chronic small vessel ischemic disease. Chronic lacunar infarct within the left thalamus. Dictated by: Dictated on workstation # [id number] Dict: 06/19/2245 Trans: 06/19/22950 [facility] [id number] Interpreted by: AMNA FRIAS DO Electronically signed by: AMNA FRIAS DO 06/19/2251 [facility], [place] NAME: HEMA EAST [facility] REC#: [id number] PT STATUS: REG ER : 1935 PHYSICIAN: SILVINA FLORES MD ADMIT DATE: 06/19/22/ER Signed Date of Exam:06/19/22 CT CHEST W PROCEDURE: CT chest with contrast only. TECHNIQUE: Multiple contiguous axial images were obtained through the chest after administration of intravenous contrast. Auto Exposure Controls were utilized during the CT exam to meet ALARA standards for radiation dose reduction. INDICATION: Shortness of breath Lungs are clear. There are no effusions or pneumothoraces. There is no hilar or mediastinal lymphadenopathy. There is a dual-chamber pacemaker. There is coronary and aortic calcific atherosclerosis. IMPRESSION: No acute abnormality seen in the chest. There is insufficient contrast to evaluate for pulmonary embolic disease. Dictated by: Dictated on workstation # [id number] Dict: 06/19/2242 Trans: 06/19/2243 [facility] [id number] Interpreted by: FARHAT GILLESPIE MD Electronically signed by: FARHAT GILLESPIE MD 06/19/22 0943 Departure Impression Primary Impression: AMS (altered mental status) Qualified Codes: R41.0 - Disorientation, unspecified Additional Impressions: Fever of unknown origin Respiratory failure Qualified Codes: J96.01 - Acute respiratory failure with hypoxia Disposition: 07 AGAINST MEDICAL ADVICE Condition: Stable Admissions Decision to Admit Reason: Admit from ER (General) Decision to Admit/Date: Jun 19, 2022 Time/Decision to Admit Time: 09:35 Departure-Patient Inst. Decision time for Depature: 10:09 Referrals: JOSE TARANGO MD (PCP/Family) Primary Care Physician Add. Discharge Instructions: You can always come back to be admitted to this hospital if you change your mind. There is a risk that she could get worse while driving to [place]. SILVINA FLORES MD Jun 19, 2022 06:43
[2022-06-19] MEDS ORDERED: NS IV 1000 ML 1,000 ML IV SCH (06:45)
[2022-06-19] MEDS ORDERED: CEFEPIME INJECTION 1,000 MG in NS (IVPB) 50 ML IV ONE (06:45)
[2022-06-19] MEDS ORDERED: ACETAMINOPHEN 500 MG TAB (TYLENOL) PO PRN (06:45)
[2022-06-19 07:00] LABS: BASOPHILS % (AUTO) 0 % (0-10); EOSINOPHILS % (AUTO) 0 % (0-10); HEMATOCRIT 40 % (35-52); HEMOGLOBIN 13.3 g/dL (11.5-16.0); LYMPHOCYTES # (AUTO) 0.7 10^3/uL (1.0-4.0); LYMPHOCYTES % (AUTO) 7 % (12-44); MEAN CORPUSCULAR HEMOGLOBIN 29 pg (25-34); MEAN CORPUSCULAR HGB CONC 34 g/dL (32-36); MEAN CORPUSCULAR VOLUME 87 fL (80-99); MEAN PLATELET VOLUME 10.2 fL (9.0-12.2); MONOCYTES # (AUTO) 0.2 10^3/uL (0.0-1.0); MONOCYTES % (AUTO) 3 % (0-12); NEUTROPHILS # (AUTO) 8.7 10^3/uL (1.8-7.8); NEUTROPHILS % (AUTO) 90 % (42-75); PLATELET COUNT 203 10^3/uL (130-400); WHITE BLOOD COUNT 9.8 10^3/uL (4.3-11.0)
--- NOTE | 2022-06-19 07:04 | Diagnostic Imaging Report ---
PROCEDURE: CT head wo r/o stroke. TECHNIQUE: Multiple contiguous axial images were obtained through the brain without the use of intravenous contrast. Auto Exposure Controls were utilized during the CT exam to meet ALARA standards for radiation dose reduction. INDICATION: Altered mental status The ventricles are normal in size, shape and position. There are no masses or hemorrhages. There are no extra-axial fluid collections. There is decreased density in the periventricular white matter consistent with chronic small vessel ischemic change. IMPRESSION: Chronic ischemic leukoencephalopathy. No CT evidence of an acute infarct. No significant change compared to prior exam dated 07/20/2017. Dictated by: Dictated on workstation # [id number]
[2022-06-19 07:05] LABS: ALBUMIN 3.7 GM/DL (3.2-4.5); CHLORIDE 103 MMOL/L (98-107); POTASSIUM 3.9 MMOL/L (3.6-5.0); SODIUM 138 MMOL/L (135-145)
[2022-06-19 07:06] LABS: CALCIUM 9.1 MG/DL (8.5-10.1)
--- NOTE | 2022-06-19 07:06 | Diagnostic Imaging Report ---
Indication: Altered mental status Portable chest 6:55 AM Heart size and pulmonary vascularity are normal. Lungs are clear. There are no effusions or pneumothoraces. There is a dual-chamber pacemaker. IMPRESSION: No acute abnormalities in the chest Dictated by: Dictated on workstation # [id number]
[2022-06-19 07:08] LABS: GLUCOSE 150 MG/DL (70-105); TOTAL PROTEIN 6.9 GM/DL (6.4-8.2)
[2022-06-19 07:09] LABS: BILIRUBIN,TOTAL 0.5 MG/DL (0.1-1.0); CARBON DIOXIDE 25 MMOL/L (21-32)
[2022-06-19 07:11] LABS: ALKALINE PHOSPHATASE 55 U/L (40-136); CREATININE SERUM 1.16 MG/DL (0.60-1.30); GFR ESTIMATED 46
[2022-06-19 07:12] LABS: BUN/CREATININE RATIO 14
[2022-06-19 07:14] LABS: ALANINE AMINOTRANSFERASE 16 U/L (0-55); FIBRIN DEGRADATION PRODUCTS 0.91 UG/ML (0.00-0.49); MAGNESIUM 1.8 MG/DL (1.6-2.4); PROTHROMBIN TIME PATIENT 31.8 SEC (12.2-14.7)
[2022-06-19 07:15] LABS: BILIRUBIN,URINE NEGATIVE (NEGATIVE); CLARITY,URINE CLEAR; COLOR,URINE YELLOW; GLUCOSE, URINE (UA) NEGATIVE (NEGATIVE); KETONES,URINE NEGATIVE (NEGATIVE); LEUKOCYTE ESTERASE ,URINE NEGATIVE (NEGATIVE); NITRITE,URINE NEGATIVE (NEGATIVE); PROTEIN,URINE NEGATIVE (NEGATIVE)
[2022-06-19 07:15] LABS: LIPASE 27 U/L (8-78)
[2022-06-19 07:23] LABS: BACTERIA,URINE NEGATIVE /HPF; RBC,URINE 0-2 /HPF; SQUAMOUS EPITHELIAL CELL,UR RARE /HPF; WBC,URINE RARE /HPF
[2022-06-19 07:42] LABS: BAND NEUTROPHILS 4 %; BASOPHILS % (MANUAL) 0 %; EOSINOPHILS % (MANUAL) 0 %; LYMPHOCYTES % (MANUAL) 13 %; MONOCYTES % (MANUAL) 5 %; NEUTROPHILS % (MANUAL) 78 %; RBC MORPH NORMAL
--- NOTE | 2022-06-19 08:57 | Diagnostic Imaging Report ---
Indication: Cardiopulmonary arrest Portable chest 8:41 AM There is a dual-chamber pacemaker. Heart size and pulmonary vascularity are normal. Lungs are clear. There are no effusions or pneumothoraces. IMPRESSION: Negative chest Dictated by: Dictated on workstation # [id number]
[2022-06-19] MEDS ORDERED: HOLD METFORMIN - RECEIVED CONTRAST 20 ML VIAL IV SCH (09:15)
[2022-06-19] MEDS ORDERED: IOHEXOL 350 MG/ML 100 ML (OMNIPAQUE 350) VIAL IV ONE (09:15)
[2022-06-19] MEDS ORDERED: NS 100 ML (IVPB) BAG IV ONE (09:15)
--- NOTE | 2022-06-19 09:45 | Diagnostic Imaging Report ---
PROCEDURE: CT chest with contrast only. TECHNIQUE: Multiple contiguous axial images were obtained through the chest after administration of intravenous contrast. Auto Exposure Controls were utilized during the CT exam to meet ALARA standards for radiation dose reduction. INDICATION: Shortness of breath Lungs are clear. There are no effusions or pneumothoraces. There is no hilar or mediastinal lymphadenopathy. There is a dual-chamber pacemaker. There is coronary and aortic calcific atherosclerosis. IMPRESSION: No acute abnormality seen in the chest. There is insufficient contrast to evaluate for pulmonary embolic disease. Dictated by: Dictated on workstation # [id number]
--- NOTE | 2022-06-19 09:52 | Diagnostic Imaging Report ---
PROCEDURE: CT angiography of the head and CT angiography of the neck with and without contrast. TECHNIQUE: Contiguous noncontrast images were obtained from the skull base through the vertex. After intravenous contrast administration, helical CT angiography of the neck was performed. Source data was reformatted into 3D MIP projections. Delayed post contrast acquisition was also obtained. Auto Exposure Controls were utilized during the CT exam to meet ALARA standards for radiation dose reduction. INDICATION: Shortness of air, fever. COMPARISON: None FINDINGS: Atherosclerosis within the proximal cervical ICA with 25% stenosis per NASCET criteria. Patent right common, right internal, right external carotid artery. Atherosclerosis within the left carotid bulb without significant stenosis. Patent left common, left internal, left external carotid artery. Patent bilateral subclavian arteries and bilateral vertebral arteries. Mild atherosclerosis within the proximal right vertebral artery with 25% stenosis of the origin. Atherosclerosis within the intracranial bilateral cavernous ICAs without significant stenosis. Patent bilateral MCA and ACAs. Patent bilateral and cranial vertebral arteries. The right vertebral artery is dominant. Patent basilar artery and bilateral machine heel seat fitter. No aneurysm or arteriovenous malformation. No acute intracranial hemorrhage. The marks-white matter differentiation is preserved. The ventricles and cortical sulci are normal. . No mass or fluid collection. Chronic appearing infarct within the left thalamus. The paranasal sinuses demonstrate mucosal thickening within the left anterior ethmoid and left maxillary sinus. The soft tissues of the neck demonstrate normal soft tissues. No neck mass or lymphadenopathy. The and nasopharynx, oropharynx, and hypopharynx, and larynx are normal. The thyroid, submandibular gland, and parotid glands are normal. A few tiny scattered subcentimeter lymph nodes in the bilateral cervical chains. None are pathologically enlarged or avidly enhancing. The included lung apices demonstrates no significant finding. The osseous structures demonstrate advanced degenerative changes within the bilateral glenohumeral joints. Mild to moderate spinal canal and neural foraminal narrowing due to uncovertebral and facet arthritis and degenerative multilevel disc osteophyte complex. IMPRESSION: No large vessel occlusion or significant stenosis in the head and neck. No neck mass or lymphadenopathy. No fluid collections identified. No acute intracranial hemorrhage. No large vascular territory jeong-white loss. No intracranial mass, midline shift, or hydrocephalus. Mild chronic small vessel ischemic disease. Chronic lacunar infarct within the left thalamus. Dictated by: Dictated on workstation # [id number]
[2022-06-19] MEDS ORDERED: DOXYCYCLINE INJECTION 100 MG in NS (IVPB) 100 ML IV ONE (10:00)
== END 2022-06-19 10:33 | disposition left against medical advice (07) ==
LOC: EDUNIT# 06:34 → ER 06:39
DX: R41.82 Altered mental status, unspecified (principal); R50.9 Fever, unspecified; J96.90 Respiratory failure, unspecified, unspecified whether with hypoxia or hypercapnia; R53.1 Weakness; Z20.822 Contact with and (suspected) exposure to COVID-19
CPT/HCPCS: 36415; 51702; 70450; 70496; 70498; 71045; 71260; 80053; 81000; 83605; 83690; 83735; 83880; 84484; 85007; 85027; 85379; 85610; 85730; 87040; 87077; 87088; 87636; 93005; 93041

== ENCOUNTER → 2022-10-22 | Outpatient (CLI) | payer MEDICARE, OTHER ==
[~2022-10-22] MED LIST changes: -LOSA100T57 PO; +LOSA100T58 PO; +REGADENOSON 0.4 MG/5 ML SYR (LEXISCAN) IV ONE
[2022-10-22] MEDS: CATHETER FLUSH 10 ML SYR IVP PRN ×2 (07:48→09:13)
[2022-10-22 09:08] VITALS: BP 190/110
== END ==
LOC: CARD 07:24
PROVIDERS: ATTEND Internal Medicine Cardiovascular Disease
DX: I10 Essential (primary) hypertension (principal); I25.10 Atherosclerotic heart disease of native coronary artery without angina pectoris
CPT/HCPCS: 78452; 93017; A9502

== ENCOUNTER 2022-11-05 08:31 | Day surgery (SDC) | payer MEDICARE, OTHER ==
[~2022-11-05] VITALS: Ht 157 cm; Wt 66.1 kg
[2022-11-05] VITALS (16 sets, daily range): BP systolic 113–189; BP diastolic 82–125
[~2022-11-05 08:31] MED LIST changes: -REGADENOSON 0.4 MG/5 ML SYR (LEXISCAN) IV ONE
[2022-11-05] MEDS ORDERED: NS IV 1000 ML 1,000 ML ONE (08:47)
[2022-11-05] MEDS ORDERED: LIDOCAINE 1% INJ 20 ML VIAL ONE (08:47)
[2022-11-05] MEDS ORDERED: HEParin (CATH LAB) 2,000 ML IV ONE (08:47)
[2022-11-05] MEDS ORDERED: NS IV 1000 ML 1,000 ML IV ONE (09:00)
--- NOTE | 2022-11-05 09:35 | Diagnostic Imaging Report ---
INDICATION: ABNORMAL STRESS TEST TECHNIQUE: Single view chest 9:20 AM CORRELATION STUDY: 06/19/2022 FINDINGS: Left-sided dual-chamber pacemaker. Heart size borderline enlarged but stable. Calcification of the aortic arch. Vasculature within normal limits. Minimal discoid atelectasis and/or scarring left costophrenic angle. No infiltrate. Advanced degenerative changes bilateral shoulders left greater than right. IMPRESSION: 1. Generally stable chest demonstrates no acute abnormalities. Dictated by: Dictated on workstation # [id number]
[2022-11-05 09:43] LABS: HEMATOCRIT 43 % (35-52); MEAN CORPUSCULAR HEMOGLOBIN 28 pg (25-34); MEAN CORPUSCULAR HGB CONC 33 g/dL (32-36); MEAN CORPUSCULAR VOLUME 85 fL (80-99); MEAN PLATELET VOLUME 10.2 fL (9.0-12.2); PLATELET COUNT 279 10^3/uL (130-400)
[2022-11-05 09:58] LABS: INR 1.1 (0.8-1.4); PROTHROMBIN TIME PATIENT 13.9 SEC (12.2-14.7)
[2022-11-05] MEDS ORDERED: NS IV 1000 ML 1,000 ML IV SCH ×2 (10:00)
[2022-11-05] MEDS ORDERED: PATIENT MAY USE OWN MEDS, ALL PO SCH ×2 (10:00→13:00)
[2022-11-05 10:01] LABS: BILIRUBIN,TOTAL 0.5 MG/DL (0.1-1.0); CALCIUM 9.4 MG/DL (8.5-10.1); CREATININE SERUM 1.04 MG/DL (0.60-1.30); POTASSIUM 3.3 MMOL/L (3.6-5.0); TOTAL PROTEIN 7.1 GM/DL (6.4-8.2)
[2022-11-05] MEDS ORDERED: FLUT9.9S NS (10:05)
[2022-11-05] MEDS ORDERED: VITA80009 PO (10:05)
[2022-11-05] MEDS ORDERED: FLEC50TA PO (10:05)
[2022-11-05] MEDS ORDERED: CETI10TA17 PO (10:05)
[2022-11-05] MEDS ORDERED: ZINC50TA51 PO (10:05)
[2022-11-05] MEDS ORDERED: EZET10TA49 PO (10:05)
[2022-11-05] MEDS ORDERED: LOSA25TA41 PO (10:05)
[2022-11-05] MEDS ORDERED: RIVA20TA PO (10:05)
[2022-11-05] MEDS ORDERED: OMEG100032 PO (10:05)
[2022-11-05] MEDS ORDERED: ACET325T38 PO (10:05)
[2022-11-05] MEDS ORDERED: FENO54TA PO (10:05)
[2022-11-05] MEDS ORDERED: ASCO100024 PO (10:05)
[2022-11-05] MEDS ORDERED: CYAN500T8 PO (10:05)
[2022-11-05] MEDS ORDERED: TURM500T PO (10:05)
[2022-11-05] MEDS ORDERED: MTP100TCR PO (10:05)
--- NOTE | 2022-11-05 10:07 | Cardiac Cath Report ---
Cardiac Cath Report Physician (s)/Clerical Aide Teacher (s) Physician ALEYDA LOJA MD Post-Procedure Note Procedure Start Date: Nov 05, 2022 ALEYDA LOJA MD Nov 05, 2022 10:07
[2022-11-05] MEDS ORDERED: POLY1DRO OP (10:14)
[2022-11-05] MEDS ORDERED: POTA-177 PO (10:14)
[2022-11-05] MEDS ORDERED: HEParin 1000 UNIT/ML (10ML VIAL) FOR BOLUS ONE (11:12)
[2022-11-05] MEDS ORDERED: VERAPAMIL 5 MG/2 ML (CALAN) VIAL IV ONE (11:12)
[2022-11-05] MEDS ORDERED: NITRO DRIP 25000 MCG/D5W 250 ML IV ONE (11:12)
[2022-11-05] MEDS ORDERED: MIDAZOLAM INJ 5 MG/5 ML VIAL ONE (11:12)
[2022-11-05] MEDS ORDERED: fentaNYL INJECTION 100 MCG/2 ML VIAL ONE (11:12)
[2022-11-05] MEDS ORDERED: EPTIFIBATIDE BOLUS 10 ML IV ONE (12:29)
[2022-11-05] MEDS ORDERED: ASPIRIN 325 MG TABLET ONE (12:47)
[2022-11-05] MEDS ORDERED: CLOPIDOGREL 300 MG TABLET PO ONE (12:47)
[2022-11-05] MEDS ORDERED: ACETAMINOPHEN 325 MG TABLET PO PRN (13:00)
--- NOTE | 2022-11-05 13:10 | Cardiac Cath Report ---
Cardiac Cath Report Physician (s)/Director Private (s) Physician ALEYDA LOJA MD Pre-Procedure Diagnosis Pre-Procedure Diagnosis: Coronary artery disease Post-Procedure Note Procedure Start Date: Nov 05, 2022 Name of Procedure: Coronary angiogram Stenting to the right coronary artery Aortic root angiogram Findings/Procedure Note PROCEDURE NOTE: 87-year-old lady with history of coronary artery disease, atrial fibrillation, had an abnormal stress test with mild ischemia in the inferior wall, due to the treatment with flecainide I decided to proceed with cardiac catheterization poss ible PTCA. After explaining the procedure to the patient, all pros and cons were explained, all questions were answered. The patient signed the consent and then she was placed in the cardiac catheterization laboratory. Groin was prepped in SL fashion local anesthesia was used. Sheath placed in the right radial artery, [place] catheter was advanced, I was unable to cross the aortic valve, engage the left coronary system and angiogram was done then engage the right coronary system and angiogram was done. Patient received multiple doses of heparin a total of 8000 units of heparin The right coronary artery was moderate in size heavily calcified with 95 to 99% stenosis at the midportion. [place] right guide was used. I was unable to cross with whisper wire or p ressure wire I exchanged the guide and used AL-1. I attempted with a whisper wire without success and noticed dissection in the proximal/ostium of the right coronary artery I advanced a BMW wire and was unable to cross the mid lesion that was heavily calcified with 99% stenosis I used 2 x 20 balloon to support the wire and was able to initiate slowly across and the wire was going in smaller branches which was assuring that I am not in the dissection flap. I did balloon to the mid and proximal right coronary artery and improve the flow slightly then I retracted the wire and redirected it in the proper right coronary artery/right PDA then I advanced a 3 x 38 [place] stent deployed it under 15 cuco, then the proximal/ostium of the right coronary artery I used 3.5 x 23 and deployed it under 15 cuco and postdilated the overlap area and the ostium of the right coronary artery. Angiogram showed no residual stenosis, the distal right coronary artery has 40 to 50% stenosis the artery is small and I used a large amount of contrast I decided to stop at this point. I noticed staining of the contrast in the aortic root subsequently I exchanged t he guide and used a pigtail catheter advanced at to the aortic root and did aortic root angiogram. Then the catheter was removed At the end of the procedure the sheath was removed. Vascular band was used FINDINGS: Hemodynamics LV did not cross the aortic valve Aorta 154/102 mean of 114 ANATOMY: Left Main is free of obstructive disease Left Anterior Descending is calcified tortuous artery with no significant disease Left Circumflex tortuous artery moderate in size with no obstructive disease. Right Coronary Artery is a dominant artery, subtotal occlusion with 95 to 99% stenosis at the midportion. Complex intervention with deployment of 2 overlapping stent proximally 3.5 x 23 mm followed by 3.0 x 38 mm with 0% residual stenosis, the distal right coronary artery/right PDA has 40 to 50% stenosis the artery is small and will be treated medically at this point LV Gram was not done Aorta evaluation done with aortic root angiogram which showed calcification in the aortic root. No dissection or aneurysm was noted PERCUTANEOUS INTERVENTION: Pre stenosis 99% Post Stenosis 0% Pre ATILIO flow 1 Post ATILIO flow 3 Dominance right coronary artery CONCLUSION: 99% mid right coronary artery stenosis with heavy calcification, complex intervention with deployment of 2 overlapping stents 3.5 x 23 followed by 3.0 x 38 with 0% residual stenosis. The right PDA has 40 to 50% stenosis smaller artery, will be treated medically due to the artery size. Calcified proximal left main and LAD, no significant obstructive disease in the left coronary system Calcified aortic root with no dissection or aneurysm DISCUSSION AND RECOMMENDATION: Patient was loaded on aspirin and Plavix, Flecainide will be contraindicated in her condition due to the heavy calcification and the small vessel coronary artery disease Anesthesia Type: Conscious Sedation Estimated blood loss (mL): 40 ml Contrast Amount: 233 ml Total Radiation Dose: 1521 mGy Post-Procedure Diagnosis Post-operative diagnosis: Coronary artery disease Paroxysmal atrial fibrillation Hypertension Hyperlipidemia ALEYDA LOJA MD Nov 05, 2022 13:10
--- NOTE | 2022-11-05 13:13 | Cardiac Procedure Note-CS/ASA ---
Pre-Procedure Note Pre-Op Procedure Note Date of Available H&P: Oct 28, 2022 Date H&P Reviewed: Nov 05, 2022 Time H&P Reviewed: 11:00 History & Physical: H&P Reviewed, Patient Examed, No changes noted Pre-Operative Diagnosis: Coronary artery disease Moderate Sedation PreProcedure Time 11:00 ASA Score 3 Airway Lungs Heart ASA score ASA 1: a normal healthy patient ASA 2: a patient with a mild systemic disease (mid diabetes, controlled hypertension, obesity ASA 3: a patient with a severe systemic disease that limits activity (angina, COPD, prior Myocardial infarction) ASA 4: a patient with an incapacitating disease that is a constant threat to life (CHF, renal failure) ASA 5: a moribund patient not expected to survive 24 hrs. (ruptured aneurysm) ASA 6: a declared brain- patient whose organs are being harvested. For emergent operations, add the letter E after the classification Mallampati Classification Grade 3 Sedation Plan Analgesia, Amnesia, Plan communicated to team members, Discussed options with patient/fam, Discussed risks with patient/fam The patient is an appropriate candidate to undergo the planned procedure, sedation, and anesthesia. The patient immediately re-assessed prior to indication. ALEYDA LOJA MD Nov 05, 2022 13:13
[2022-11-05] MEDS: NS IV 1000 ML 1,000 ML IV SCH (16:37)
[2022-11-05] MEDS ORDERED: RIVAROXABAN 20 MG TABLET PO SCH (18:00)
[2022-11-05] MEDS ORDERED: LOSARTAN 25 MG TABLET PO SCH (21:00)
[2022-11-05] MEDS ORDERED: FENOFIBRATE 54 MG TABLET PO SCH (21:00)
[2022-11-05] MEDS ORDERED: NON-FORMULARY MEDICATION 1 EA EA (Levothyroxine Sodium (Levothyroxine) 50 MCG) PO SCH (21:00)
[2022-11-05] MEDS ORDERED: LEVOTHYROXINE 50 MCG TABLET PO SCH (21:00)
[2022-11-05] MEDS ORDERED: FENOFIBRATE 54 MG PO SCH (21:00)
[2022-11-06] VITALS: BP 133/83
[2022-11-06] MEDS: NS IV 1000 ML 1,000 ML IV SCH (00:18)
[2022-11-06 04:00] VITALS: BP 130/97
[2022-11-06 04:49] LABS: HEMATOCRIT 38 % (35-52); HEMOGLOBIN 12.5 g/dL (11.5-16.0); MEAN CORPUSCULAR HEMOGLOBIN 28 pg (25-34); MEAN CORPUSCULAR HGB CONC 33 g/dL (32-36); MEAN CORPUSCULAR VOLUME 84 fL (80-99); MEAN PLATELET VOLUME 10.4 fL (9.0-12.2); PLATELET COUNT 278 10^3/uL (130-400); WHITE BLOOD COUNT 5.3 10^3/uL (4.3-11.0)
[2022-11-06 05:11] LABS: CALCIUM 8.8 MG/DL (8.5-10.1); CREATININE SERUM 1.07 MG/DL (0.60-1.30); POTASSIUM 3.8 MMOL/L (3.6-5.0)
[2022-11-06] MEDS ORDERED: ASPI-1238 PO (06:26)
[2022-11-06] MEDS ORDERED: CLOP75TA28 PO (06:26)
[2022-11-06] MEDS ORDERED: PANT40TA2 PO (06:26)
--- NOTE | 2022-11-06 06:27 | Discharge Inst-Post CATH ---
Discharge Inst-CATH/EP Problems Reviewed?: Yes Post Cardiac Cath/EP D/C Inst Follow Up/Plan Appointment with Dr Guerra in 2 weeks <b>CARDIAC CATH/EP PROCEDURE DISCHARGE INSTRUCTIONS</b> ACTIVITY * Go Home directly and rest. * Limit activity of the leg (or wrist if it was used) for 7 days including aerobics, swimming, jogging, bicycling, etc. * Restrict stair-climbing for 7 days if possible, if not, climb up with your non-cath leg, then bring together on the same step. * Avoid lifting, pushing, pulling or excessive movement of the affected extremity for 7 days. * Customary sexual activity may be resumed after 2 days-use caution not to use a position that strains or causes pain to the affected extremity. * No driving for 24 hours. * NO SMOKING. * Avoid straining for bowel movements for 7 days. * Gentle walking on level ground is allowed. * Returning to work will depend on the type of procedure and the results. Your doctor will discuss this with you. CALL YOUR DOCTOR FOR ANY OF THE FOLLOWING: *If bleeding from the puncture site occurs- Apply gentle pressure to site with clean cloth and call your doctor or EMS. * If a knot or lump forms under the skin, increases in size, or causes pain. * If bruising appears to be worsening or moving further down your leg instead of disappearing. * Temperature above 101 F. CARE OF YOUR GROIN INCISION; * Bruising or purple discoloration of the skin near the puncture site is common. * You may shower only, no bathtub bathing for 5 days. Be careful to avoid slipping as your leg may feel stiff. * If a closure device was used on your femoral artery, please see the attached guide regarding care of the device and your leg. * Leave dressing on FOR 24 hours. CARE OF YOUR WRIST INCISION; * Bruising or purple discoloration of the skin near the puncture site is common. * You may shower. * DO NOT submerge wrist. * Leave dressing on FOR 24 hours. ALEYDA GUERRA MD Nov 06, 2022 06:27
[2022-11-06 08:00] VITALS: BP 147/96
--- NOTE | 2022-11-06 08:21 | Cardiology Progress Note ---
Subjective Date Seen by Provider: Nov 06, 2022 Time Seen by Provider: 08:20 Subjective/Events-last exam Patient was seen and evaluated, feeling better. No new complaint Review of Systems General: No Chills, No Night Sweats, No Fatigue, No Malaise, No Appetite, No Other HEENT: No Head Aches, No Visual Changes, No Eye Pain, No Ear Pain, No Dysphasia, No Sinus Congestion, No Post Nasal Drip, No Sore Throat, No Other Pulmonary: No Dyspnea, No Cough, No Pleuritic Chest Pain, No Other Cardiovascular: No: Chest Pain, Palpitations, Orthopnea, Paroxysmal Noc. Dyspnea, Edema, Lt Headedness, Other Objective-Cardiology Exam Last Set of Vital Signs Vital Signs 11/06/22 11/06/22 00:00 04:00 Temp 36.4 Pulse 84 Resp 20 B/P (MAP) 130/97 (108) Pulse Ox 95 O2 Delivery Room Air I&O Intake and Output 11/06/22 00:00 Intake Total 1000 ml Balance 1000 ml IV Total 1000 ml General: Alert, Oriented X3, Cooperative HEENT: Atraumatic, PERRLA Neck: Supple, No JVD, No Thyromegaly Lungs: Clear to Auscultation, Normal Air Movement Heart: Regular Rate, Normal S1, Normal S2, No Murmurs Abdomen: Normal Bowel Sounds, Soft, No Tenderness, No Hepatosplenomegaly, No Masses Extremities: No Clubbing, No Cyanosis, No Edema, Normal Pulses, No Tenderness/Swelling Skin: No Rashes, No Breakdown, No Significant Lesion Neuro: Normal Gait, Normal Speech, Strength at 5/5 X4 Ext, Normal Tone, Sensa tion Intact Psych/Mental Status: Mental Status NL, Mood NL Results Lab Laboratory Tests 11/05/22 09:26 11/06/22 04:33 A/P-Cardiology Assessment/Plan Coronary artery disease, status post stenting to the right coronary artery, still have a distal lesion which will be treated medically Paroxysmal atrial fibrillation, discontinue flecainide. Hypertension Hyperlipidemia Planning for discharge today ALEYDA LOJA MD Nov 06, 2022 08:21
[2022-11-06] MEDS ORDERED: ASPIRIN enteric coated 81MG TABLET PO SCH (09:00)
[2022-11-06] MEDS ORDERED: CLOPIDOGREL 75 MG TABLET PO SCH (09:00)
== END 2022-11-06 09:15 | disposition home or self-care (01) ==
LOC: CATH 08:31 → CSD 13:28 → CATH 11-06 09:15
PROVIDERS: ATTEND Internal Medicine Cardiovascular Disease
DX: I25.10 Atherosclerotic heart disease of native coronary artery without angina pectoris (principal); I48.0 Paroxysmal atrial fibrillation; I11.9 Hypertensive heart disease without heart failure; I44.7 Left bundle-branch block, unspecified; I08.0 Rheumatic disorders of both mitral and aortic valves; E78.5 Hyperlipidemia, unspecified; I49.5 Sick sinus syndrome; I65.29 Occlusion and stenosis of unspecified carotid artery; R41.82 Altered mental status, unspecified; R53.1 Weakness; R42 Dizziness and giddiness; R51.0 Headache with orthostatic component, not elsewhere classified; E78.2 Mixed hyperlipidemia; Z95.1 Presence of aortocoronary bypass graft; Z79.899 Other long term (current) drug therapy; Z79.01 Long term (current) use of anticoagulants
CPT/HCPCS: 71045; 80048; 80053; 80061; 85027 ×2; 85347; 85610; 85730; 87081; 93005 ×2; 93454; 93567; C1725; C1769 ×4; C1874 ×2; C1887 ×2; C1894; C9600; 36415